=== PATIENT | female | born 1950 | race Caucasian/White ===

== ENCOUNTER → 2024-04-06 09:41 | Outpatient (REF) | payer OTHER, SELFPAY | LOC: RAD 09:41 | PROVIDERS: ATTENDING PHYSICIAN Family Medicine | DX: K21.9 Gastro-esophageal reflux disease without esophagitis (principal); R63.4 Abnormal weight loss | CPT/HCPCS: 74230; 92611 ==

== ENCOUNTER → 2024-04-29 06:25 | Day surgery (SDC) | payer OTHER, SELFPAY ==
[2024-04-29 08:55] LABS: Glucose - Point of Care 109 mg/dl (70-99)
== END ==
LOC: GI 06:25
PROVIDERS: ATTENDING PHYSICIAN Internal Medicine Gastroenterology
DX: R13.14 Dysphagia, pharyngoesophageal phase (principal); C15.4 Malignant neoplasm of middle third of esophagus; R12 Heartburn; R63.4 Abnormal weight loss; R68.81 Early satiety; K31.89 Other diseases of stomach and duodenum; K29.50 Unspecified chronic gastritis without bleeding; K31.A0 Gastric intestinal metaplasia, unspecified; D49.0 Neoplasm of unspecified behavior of digestive system; F17.210 Nicotine dependence, cigarettes, uncomplicated
CPT/HCPCS: 43239; 88305; 82962; 88342; 88360

== ENCOUNTER → 2024-05-21 10:55 | Outpatient (REF) | payer OTHER, SELFPAY | LOC: PET 10:55 | PROVIDERS: ATTENDING PHYSICIAN Internal Medicine Hematology & Oncology | DX: C15.4 Malignant neoplasm of middle third of esophagus (principal) | CPT/HCPCS: 78815; A9552 ==

== ENCOUNTER → 2024-06-16 07:33 | Outpatient (REF) | payer OTHER, SELFPAY | LOC: DHCBC/DCA 07:33 | PROVIDERS: ATTENDING PHYSICIAN Internal Medicine; FAMILY PHYSICIAN Family Medicine | DX: I10 Essential (primary) hypertension (principal); C15.9 Malignant neoplasm of esophagus, unspecified; R94.31 Abnormal electrocardiogram [ECG] [EKG]; R42 Dizziness and giddiness | CPT/HCPCS: 78452; 93017; A9500; J2785 ==

== ENCOUNTER → 2024-06-17 13:40 | Outpatient (REF) | payer OTHER, SELFPAY | LOC: RCS 13:40 | PROVIDERS: ATTENDING PHYSICIAN Internal Medicine; FAMILY PHYSICIAN Family Medicine | DX: I10 Essential (primary) hypertension (principal); C15.9 Malignant neoplasm of esophagus, unspecified; R94.31 Abnormal electrocardiogram [ECG] [EKG]; R42 Dizziness and giddiness | CPT/HCPCS: 93306; 93356 ==

== ENCOUNTER → 2024-06-22 08:33 | Outpatient (REF) | payer OTHER, SELFPAY ==
[2024-06-22 08:44] VITALS: BP 132/55; BP_SYST 76
[2024-06-22 09:22] LABS: Glucose - Point of Care 139 mg/dl (70-99)
[2024-06-22 10:30] VITALS: BP 125/57; BP_SYST 82
[2024-06-22 10:43] VITALS: BP 137/63
== END ==
LOC: RADI 08:33
PROVIDERS: ATTENDING PHYSICIAN Internal Medicine Hematology & Oncology
DX: C15.4 Malignant neoplasm of middle third of esophagus (principal)
CPT/HCPCS: 36561; 76937; 77001; 82962; 99152; 99153; C1788

== ENCOUNTER 2024-08-06 13:34 | Outpatient (RCR) | payer OTHER, SELFPAY ==
[2024-07-07] VITALS (10 sets, daily range): BP systolic 113–142; BP diastolic 48–98; BMI 24.4
[2024-07-07 10:04] LABS: Hematocrit 31.8 % (37.0-47.0); Hemoglobin 10.6 g/dL (12.0-16.0); Mean Corp Hgb Conc. 33.3 g/dL (33.0-37.0); Mean Corpuscular Volume 84.1 fL (81.0-99.0); Mean Platelet Volume 8.8 fL (7.4-10.4); Platelet Count 436 10^3/uL (130-400); Red Blood Cell Count 3.78 10^6/uL (4.20-5.40); Red Cell Dist. Width 15.5 % (11.5-14.5); White Blood Cell Count 3.3 10^3/uL (4.8-10.8)
[2024-07-07 10:47] LABS: % Basophils 0.6 % (0-2); % Eosinophils 2.7 % (0-6); % Immature Granulocytes 0.3 % (0-0.5); % Lymphocytes 31.3 % (20.5-51.1); % Monocytes 13.7 % (1.7-9.3); % Neutrophils 51.4 % (42.2-75.2); Absolute Eosinophils 0.1 10^3/uL (0-0.7); Absolute Monocytes 0.5 10^3/uL (0.1-0.6); Absolute Neutrophils 1.7 10^3/uL (1.4-6.5); Nucleated Red Blood Cells % 0 %
[2024-07-07 10:50] LABS: ALT (SGPT) 18 U/L (0-35); AST (SGOT) 29 U/L (14-36); Albumin 3.4 g/dl (3.5-5.0); Alkaline Phosphatase 69 U/L (38-126); Blood Urea Nitrogen 23 mg/dl (7-17); Calcium 10.4 mg/dl (8.4-10.2); Carbon Dioxide 25 mmol/L (22-30); Chloride 103 mmol/L (98-107); Estimated Creatinine Clearance 68 ml/min; Glucose 125 mg/dl (70-99); Potassium 4.4 mmol/L (3.5-5.1); Sodium 137 mmol/L (135-145); Total Bilirubin 0.4 mg/dl (0.2-1.3); Total Protein 5.8 g/dl (6.3-8.2); eGFR > 60.00
[2024-07-07] MEDS: KEYTRUDA 116 MG IV (11:22)
[2024-07-07] MEDS: EMEND 150 MG IV (11:53)
[2024-07-07] MEDS: ALOXI 5 MG IV (12:35)
[2024-07-07] MEDS: DECADRON 51 MG IV (12:36)
[2024-07-07] MEDS: WELLCOVORIN 316.4 MG IV (13:05)
[2024-07-07] MEDS: OXALIPLATIN 278.2 MG IV (13:07)
[2024-07-07] MEDS: FLUOROURACIL 13.2 MG IV (15:37)
[2024-07-07] MEDS: FLUOROURACIL 92 ML IV (15:38)
[2024-07-07] MEDS: FLUOROURACIL 92 MG IV (15:38)
[2024-07-09 13:45] VITALS: BP 130/63
[2024-07-09] MEDS: [UNRECOGNIZED DRUG - OTHER] 1 IV (13:50)
[2024-07-21 08:35] VITALS: BP 138/48; BMI 24.6
[2024-07-21 08:51] LABS: % Basophils 0.8 % (0-2); % Eosinophils 1.2 % (0-6); % Lymphocytes 34.9 % (20.5-51.1); % Monocytes 16.9 % (1.7-9.3); % Neutrophils 46.2 % (42.2-75.2); Absolute Lymphocytes 0.9 10^3/uL (1.2-3.4); Absolute Monocytes 0.4 10^3/uL (0.1-0.6); Absolute Neutrophils 1.2 10^3/uL (1.4-6.5); Hematocrit 33.5 % (37.0-47.0); Hemoglobin 11.1 g/dL (12.0-16.0); Mean Corp Hgb Conc. 33.1 g/dL (33.0-37.0); Mean Corpuscular Hgb 29.1 pg (27.0-31.0); Mean Corpuscular Volume 87.9 fL (81.0-99.0); Mean Platelet Volume 9.1 fL (7.4-10.4); Platelet Count 323 10^3/uL (130-400); Red Blood Cell Count 3.81 10^6/uL (4.20-5.40); Red Cell Dist. Width 16.8 % (11.5-14.5); White Blood Cell Count 2.6 10^3/uL (4.8-10.8)
[2024-07-21 09:18] LABS: ALT (SGPT) 15 U/L (0-35); AST (SGOT) 22 U/L (14-36); Albumin 3.5 g/dl (3.5-5.0); Alkaline Phosphatase 65 U/L (38-126); Blood Urea Nitrogen 25 mg/dl (7-17); Calcium 9.9 mg/dl (8.4-10.2); Carbon Dioxide 25 mmol/L (22-30); Chloride 102 mmol/L (98-107); Estimated Creatinine Clearance 68 ml/min; Glucose 167 mg/dl (70-99); Sodium 139 mmol/L (135-145); Total Bilirubin 0.5 mg/dl (0.2-1.3); Total Protein 5.8 g/dl (6.3-8.2); eGFR > 60.00
[2024-07-21] MEDS: EMEND 150 MG IV (10:31)
[2024-07-21] MEDS: ALOXI 5 MG IV (11:05)
[2024-07-21] MEDS: DECADRON 51 MG IV (11:06)
[2024-07-21] MEDS: OXALIPLATIN 278.2 MG IV (11:37)
[2024-07-21] MEDS: WELLCOVORIN 283.2 MG IV (11:38)
[2024-07-21 11:45] VITALS: BP 163/63
[2024-07-21 12:30] VITALS: BP 137/61
[2024-07-21 13:45] VITALS: BP 148/50
[2024-07-21] MEDS: FLUOROURACIL 13.2 MG IV (13:51)
[2024-07-21] MEDS: FLUOROURACIL 92 MG IV (13:52)
[2024-07-21] MEDS: FLUOROURACIL 92 ML IV (13:52)
[2024-07-23 13:55] VITALS: BP 111/56
[2024-07-23] MEDS: [UNRECOGNIZED DRUG - OTHER] 1 IV (13:58)
[2024-07-23] MEDS: NYVEPRIA 6 MG SC (13:59)
[2024-07-30 09:20] LABS: % Basophils 0.4 % (0-2); % Immature Granulocytes 11.7 % (0-0.5); % Lymphocytes 22.5 % (20.5-51.1); % Monocytes 9.1 % (1.7-9.3); % Neutrophils 55.3 % (42.2-75.2); Absolute Basophils 0.1 10^3/uL (0-0.2); Absolute Eosinophils 0.1 10^3/uL (0-0.7); Absolute Immature Granulocytes 1.7 10^3/uL (0-0.05); Absolute Lymphocytes 3.3 10^3/uL (1.2-3.4); Absolute Monocytes 1.3 10^3/uL (0.1-0.6); Absolute Neutrophils 8.1 10^3/uL (1.4-6.5); Hematocrit 36.9 % (37.0-47.0); Hemoglobin 12.2 g/dL (12.0-16.0); Mean Corp Hgb Conc. 33.1 g/dL (33.0-37.0); Mean Corpuscular Hgb 29.3 pg (27.0-31.0); Mean Corpuscular Volume 88.5 fL (81.0-99.0); Mean Platelet Volume 9.4 fL (7.4-10.4); Platelet Count 272 10^3/uL (130-400); Red Blood Cell Count 4.17 10^6/uL (4.20-5.40); Red Cell Dist. Width 18.2 % (11.5-14.5); White Blood Cell Count 14.7 10^3/uL (4.8-10.8)
[2024-07-30 10:10] LABS: ALT (SGPT) 17 U/L (0-35); AST (SGOT) 28 U/L (14-36); Albumin 3.5 g/dl (3.5-5.0); Alkaline Phosphatase 120 U/L (38-126); Blood Urea Nitrogen 17 mg/dl (7-17); Calcium 9.8 mg/dl (8.4-10.2); Carbon Dioxide 29 mmol/L (22-30); Chloride 101 mmol/L (98-107); Estimated Creatinine Clearance 68 ml/min; Glucose 113 mg/dl (70-99); Potassium 3.7 mmol/L (3.5-5.1); Sodium 138 mmol/L (135-145); Total Bilirubin 0.4 mg/dl (0.2-1.3); Total Protein 5.8 g/dl (6.3-8.2); eGFR > 60.00
[2024-08-04 08:40] VITALS: BP 133/66; BMI 24.8
[2024-08-04 08:49] LABS: % Basophils 0.5 % (0-2); % Eosinophils 0.4 % (0-6); % Immature Granulocytes 12.3 % (0-0.5); % Monocytes 7.5 % (1.7-9.3); % Neutrophils 61.3 % (42.2-75.2); Absolute Basophils 0.1 10^3/uL (0-0.2); Absolute Eosinophils 0.1 10^3/uL (0-0.7); Absolute Immature Granulocytes 1.7 10^3/uL (0-0.05); Absolute Lymphocytes 2.5 10^3/uL (1.2-3.4); Absolute Monocytes 1.1 10^3/uL (0.1-0.6); Absolute Neutrophils 8.5 10^3/uL (1.4-6.5); Hematocrit 37.2 % (37.0-47.0); Hemoglobin 12.3 g/dL (12.0-16.0); Mean Corp Hgb Conc. 33.1 g/dL (33.0-37.0); Mean Corpuscular Hgb 29.4 pg (27.0-31.0); Mean Corpuscular Volume 88.8 fL (81.0-99.0); Mean Platelet Volume 9.4 fL (7.4-10.4); Platelet Count 146 10^3/uL (130-400); Red Blood Cell Count 4.19 10^6/uL (4.20-5.40); Red Cell Dist. Width 19.1 % (11.5-14.5); White Blood Cell Count 13.9 10^3/uL (4.8-10.8)
[2024-08-04 09:47] LABS: ALT (SGPT) 21 U/L (0-35); AST (SGOT) 37 U/L (14-36); Albumin 3.5 g/dl (3.5-5.0); Alkaline Phosphatase 106 U/L (38-126); Blood Urea Nitrogen 17 mg/dl (7-17); Calcium 10.2 mg/dl (8.4-10.2); Carbon Dioxide 27 mmol/L (22-30); Chloride 103 mmol/L (98-107); Estimated Creatinine Clearance 68 ml/min; Glucose 169 mg/dl (70-99); Potassium 3.7 mmol/L (3.5-5.1); Sodium 138 mmol/L (135-145); Total Bilirubin 0.3 mg/dl (0.2-1.3); Total Protein 5.8 g/dl (6.3-8.2); eGFR > 60.00
[2024-08-04 10:03] LABS: Free T4 1.13 ng/dl (0.78-2.19)
[2024-08-04 10:17] LABS: TSH 3.93 uIU/ml (0.47-4.68)
[2024-08-04] MEDS: EMEND 150 MG IV (10:17)
[2024-08-04] MEDS: ALOXI 5 MG IV (10:53)
[2024-08-04] MEDS: DECADRON 51 MG IV (10:54)
[2024-08-04] MEDS: OXALIPLATIN 278.2 MG IV (11:21)
[2024-08-04] MEDS: WELLCOVORIN 283.2 MG IV (11:21)
[2024-08-04] MEDS: FLUOROURACIL 13.2 MG IV (13:43)
[2024-08-04] MEDS: FLUOROURACIL 92 ML IV (13:44)
[2024-08-04] MEDS: FLUOROURACIL 92 MG IV (13:44)
[2024-08-06 13:35] VITALS: BP 151/66
[2024-08-06] MEDS: [UNRECOGNIZED DRUG - OTHER] 1 IV (13:45)
[2024-08-06] MEDS: NYVEPRIA 6 MG SC (13:51)
== END 2024-08-06 23:59 | disposition home or self-care (01) ==
LOC: OID 13:34
PROVIDERS: ATTENDING PHYSICIAN Internal Medicine Hematology & Oncology; FAMILY PHYSICIAN Family Medicine
DX: Z51.11 Encounter for antineoplastic chemotherapy (principal); C15.4 Malignant neoplasm of middle third of esophagus; D50.9 Iron deficiency anemia, unspecified; C78.7 Secondary malignant neoplasm of liver and intrahepatic bile duct; Z72.0 Tobacco use; Z68.29 Body mass index [BMI] 29.0-29.9, adult
CPT/HCPCS: 36415; 36591; 80053; 82378; 84439; 84443; 85025; 96365; 96366; 96367; 96368; 96372; 96375; 96409; 96411; 96413; 96415; 96416; 96417; 96523; J1453; J2469; J9263; J9271; Q5122

== ENCOUNTER 2024-08-20 14:30 | Outpatient (RCR) | payer OTHER, SELFPAY ==
[2024-08-11 10:03] LABS: % Basophils 0.2 % (0-2); % Eosinophils 0.2 % (0-6); % Immature Granulocytes 0.9 % (0-0.5); % Lymphocytes 15.3 % (20.5-51.1); % Monocytes 2.6 % (1.7-9.3); % Neutrophils 80.8 % (42.2-75.2); Absolute Eosinophils 0.1 10^3/uL (0-0.7); Absolute Immature Granulocytes 0.2 10^3/uL (0-0.05); Absolute Lymphocytes 3.2 10^3/uL (1.2-3.4); Absolute Monocytes 0.5 10^3/uL (0.1-0.6); Absolute Neutrophils 16.8 10^3/uL (1.4-6.5); Hematocrit 39.5 % (37.0-47.0); Hemoglobin 13.3 g/dL (12.0-16.0); Mean Corp Hgb Conc. 33.7 g/dL (33.0-37.0); Mean Corpuscular Hgb 29.8 pg (27.0-31.0); Mean Corpuscular Volume 88.4 fL (81.0-99.0); Mean Platelet Volume 9.3 fL (7.4-10.4); Platelet Count 175 10^3/uL (130-400); Red Blood Cell Count 4.47 10^6/uL (4.20-5.40); Red Cell Dist. Width 18.6 % (11.5-14.5); White Blood Cell Count 20.8 10^3/uL (4.8-10.8)
[2024-08-11 12:12] LABS: ALT (SGPT) 20 U/L (0-35); AST (SGOT) 27 U/L (14-36); Albumin 4.3 g/dl (3.5-5.0); Alkaline Phosphatase 137 U/L (38-126); Blood Urea Nitrogen 17 mg/dl (7-17); Calcium 10.4 mg/dl (8.4-10.2); Carbon Dioxide 29 mmol/L (22-30); Chloride 97 mmol/L (98-107); Glucose 92 mg/dl (70-99); Potassium 3.9 mmol/L (3.5-5.1); Sodium 140 mmol/L (135-145); Total Bilirubin 0.9 mg/dl (0.2-1.3); Total Protein 6.8 g/dl (6.3-8.2); eGFR > 60.00
[2024-08-18 08:40] VITALS: BP 138/61
[2024-08-18 08:55] LABS: % Basophils 0.6 % (0-2); % Immature Granulocytes 0.6 % (0-0.5); % Lymphocytes 30.4 % (20.5-51.1); % Monocytes 14.5 % (1.7-9.3); % Neutrophils 51.9 % (42.2-75.2); Absolute Eosinophils 0.1 10^3/uL (0-0.7); Absolute Lymphocytes 1.6 10^3/uL (1.2-3.4); Absolute Monocytes 0.7 10^3/uL (0.1-0.6); Absolute Neutrophils 2.7 10^3/uL (1.4-6.5); Hemoglobin 11.7 g/dL (12.0-16.0); Mean Corp Hgb Conc. 32.5 g/dL (33.0-37.0); Mean Corpuscular Hgb 29.4 pg (27.0-31.0); Mean Corpuscular Volume 90.5 fL (81.0-99.0); Mean Platelet Volume 10.2 fL (7.4-10.4); Platelet Count 200 10^3/uL (130-400); Red Blood Cell Count 3.98 10^6/uL (4.20-5.40); Red Cell Dist. Width 19.9 % (11.5-14.5); White Blood Cell Count 5.1 10^3/uL (4.8-10.8)
[2024-08-18 09:31] LABS: ALT (SGPT) 15 U/L (0-35); AST (SGOT) 26 U/L (14-36); Albumin 3.5 g/dl (3.5-5.0); Alkaline Phosphatase 86 U/L (38-126); Blood Urea Nitrogen 18 mg/dl (7-17); Carbon Dioxide 28 mmol/L (22-30); Chloride 105 mmol/L (98-107); Glucose 112 mg/dl (70-99); Potassium 3.7 mmol/L (3.5-5.1); Sodium 139 mmol/L (135-145); Total Bilirubin 0.6 mg/dl (0.2-1.3); Total Protein 5.9 g/dl (6.3-8.2); eGFR > 60.00
[2024-08-18] MEDS: KEYTRUDA 116 MG IV (10:04)
[2024-08-18] MEDS: EMEND 150 MG IV (10:41)
[2024-08-18] MEDS: DECADRON 51 MG IV (11:18)
[2024-08-18] MEDS: ALOXI 5 MG IV (11:18)
[2024-08-18] MEDS: OXALIPLATIN 278.2 MG IV (11:48)
[2024-08-18] MEDS: WELLCOVORIN 283.2 MG IV (11:49)
[2024-08-18] MEDS: FLUOROURACIL 13.2 MG IV (14:03)
[2024-08-18] MEDS: FLUOROURACIL 92 ML IV (14:04)
[2024-08-18] MEDS: FLUOROURACIL 92 MG IV (14:04)
[2024-08-20] MEDS: NYVEPRIA 6 MG SC (14:41)
[2024-08-20] MEDS: [UNRECOGNIZED DRUG - OTHER] 1 IV (14:42)
[2024-08-20 14:54] VITALS: BP 122/47
== END 2024-09-01 15:17 | disposition home or self-care (01) ==
LOC: OID 14:30
PROVIDERS: ATTENDING PHYSICIAN Internal Medicine Hematology & Oncology; FAMILY PHYSICIAN Family Medicine
DX: C15.4 Malignant neoplasm of middle third of esophagus (principal); C78.7 Secondary malignant neoplasm of liver and intrahepatic bile duct; D50.9 Iron deficiency anemia, unspecified; Z68.29 Body mass index [BMI] 29.0-29.9, adult; Z87.891 Personal history of nicotine dependence; Z72.0 Tobacco use; Z51.11 Encounter for antineoplastic chemotherapy
CPT/HCPCS: 36415; 80053; 85025; 96367; 96368; 96372; 96375; 96409; 96413; 96415; 96416; 96417; 96523; J1453; J2469; J9263; J9271; Q5122

== ENCOUNTER 2024-08-31 15:08 | Emergency (ER) | payer OTHER, SELFPAY ==
[2024-08-31 15:10] VITALS: BP 164/77
--- NOTE | 2024-08-31 15:15 | ED.GENMED ---
ED Provider Triage
<Arleen Lopez MANAGER REAL ESTATE - Last Filed: 08/31/24 15:19>
-
Patient seen by provider in Triage?: Seen in Triage
Attestation: A medical screening examination has been initiated by a qualified medical provider. Based on the assessment performed at this time, it has been determined that an emergent medical condition may exist and the patient has been informed
that further medical evaluation and possible additional diagnostic testing may be needed.
HPI: 74 yo female states black stools, liquid diarrhea, two days after last chemo treatment 08/18. Also with abdominal pain. Also with SOB with exertion. Denies CP. Denies fever, feels chilled. Intermittent nausea and vomiting since December. Feels
nauseous now but has not vomited for 10 days.
Chemo for esophageal CA. Followed by Dr. Mas
GENERAL: Alert , in no apparent distress
EYE: No visual abnormalities.
NECK: Trachea midline
ENT: No visible abnormalities.
LUNGS: No acute respiratory distress
NEUROLOGICAL: Alert and oriented
SKIN: Skin intact. No visible changes.
MUSCULOSKELETAL: Moving extremities normally
PSYCH: Normal and appropriate interaction.
This is a medical evaluation conducted in person to initiate diagnostic evaluation and provide initial therapeutics. Please see further documentation by the treating clinician.
History of Present Illness
<Arleen Lopez, MANAGER REAL ESTATE - Last Filed: 08/31/24 15:19>
General
Chief Complaint: Rectal Bleeding
Time Seen by Provider: 08/31/24 16:40
<Bret Guerrero DO - Last Filed: 08/31/24 19:34>
General
Source: patient and other (friend)
History of Present Illness
History of Present Illness:
74-year-old female presents with black stools. Symptoms have been ongoing for 3 days. Patient admits that she has been '[place] Kaopectate'. She states she has had diarrhea and has difficulty getting the Imodium out of the packet so has been
taking a lot of Kaopectate. She also reports a little bit of lightheadedness and fatigue. Mild nausea. Patient called her primary doctor who advised her to come to the hospital. She has been treated for esophageal cancer by GI and oncology. She
denies hematochezia. Has had abdominal discomfort but that has been ongoing for some time.
Past History
<Bret Guerrero, DO - Last Filed: 08/31/24 19:34>
Past History
ED Past Medical History: Cancer (Esophageal CA), HTN, Hypercholesterolemia and IDDM
Phy Exam
<Bret Guerrero, DO - Last Filed: 08/31/24 19:34>
Physical Exam
Physical Exam:
CONSTITUTIONAL Patient alert and oriented to person, place and time. Well-appearing. Vital signs reviewed.
HEAD atraumatic, normocephalic.
EYES eyelids normal to inspection, Extraocular muscles intact, Conjunctiva normal, Sclera normal.
NECK normal range of motion, Trachea midline, no jugular venous distention.
RESPIRATORY CHEST No respiratory distress noted, Chest expansion equal
ABDOMEN abdomen nontender, Bowel sounds normal. No distention.
Rectal ? trace heme pos despite black stool.
BACK normal inspection, no obvious deformities
UPPER EXTREMITY range of motion normal, Motor strength normal, no cyanosis, no edema.
LOWER EXTREMITY range of motion normal, Motor strength normal, no cyanosis, no edema.
NEURO Speech normal, No focal motor deficits, [place] coma scale 15, Memory normal, Cranial Nerves intact to screening exam.
SKIN skin warm, dry, and normal in color.
Course
<Arleen Lopez MANAGER REAL ESTATE - Last Filed: 08/31/24 15:19>
Orders/Labs/Results
Orders:
Orders
08/31/24 15:22
Complete Blood Count/With Diff Urgent
Comprehensive Metabolic Panel Urgent
Abnormal Lab Results
08/31/24
15:22
RBC 4.17 L 10^6/uL
(4.20-5.40)
MCHC 32.6 L g/dL
(33.0-37.0)
RDW 21.1 H %
(11.5-14.5)
Abs Immat Gran (auto) 1.2 H 10^3/uL
(0-0.05)
Absolute Monos (auto) 0.9 H 10^3/uL
(0.1-0.6)
Immature Gran % 11.4 H %
(0-0.5)
BUN 21 H mg/dl
(7-17)
Glucose 253 H mg/dl
(70-99)
Total Protein 6.2 L g/dl
(6.3-8.2)
08/31/24 15:22
08/31/24 15:22
Vital Signs
Initial and Last Documented VS:
Initial Vital Signs
Temp Pulse Resp BP Pulse Ox
99.2 F 103 16 164/77 95
08/31/24 15:10 08/31/24 15:10 08/31/24 15:10 08/31/24 15:10 08/31/24 15:10
Last Documented Vital Signs
Temp Pulse Resp BP Pulse Ox
99.2 F 94 21 146/67 97
08/31/24 15:10 08/31/24 18:45 08/31/24 18:45 08/31/24 18:01 08/31/24 18:45
<Bret Guerrero, DO - Last Filed: 08/31/24 19:34>
Orders/Labs/Results
Orders:
Orders
08/31/24 15:22
Complete Blood Count/With Diff Urgent
Comprehensive Metabolic Panel Urgent
Abnormal Lab Results
08/31/24
15:22
RBC 4.17 L 10^6/uL
(4.20-5.40)
MCHC 32.6 L g/dL
(33.0-37.0)
RDW 21.1 H %
(11.5-14.5)
Abs Immat Gran (auto) 1.2 H 10^3/uL
(0-0.05)
Absolute Monos (auto) 0.9 H 10^3/uL
(0.1-0.6)
Immature Gran % 11.4 H %
(0-0.5)
BUN 21 H mg/dl
(7-17)
Glucose 253 H mg/dl
(70-99)
Total Protein 6.2 L g/dl
(6.3-8.2)
08/31/24 15:22
08/31/24 15:22
Vital Signs
Initial and Last Documented VS:
Initial Vital Signs
Temp Pulse Resp BP Pulse Ox
99.2 F 103 16 164/77 95
08/31/24 15:10 08/31/24 15:10 08/31/24 15:10 08/31/24 15:10 08/31/24 15:10
Last Documented Vital Signs
Temp Pulse Resp BP Pulse Ox
99.2 F 94 21 146/67 97
08/31/24 15:10 08/31/24 18:45 08/31/24 18:45 08/31/24 18:01 08/31/24 18:45
<Bret Guerrero, DO - Last Filed: 08/31/24 19:34>
MDM/Problems Addressed
MDM/Problems Addressed:
Black stool from Kaopectate, esophageal CA, hyperglycemia, acute dehydration
<Bret Guerrero, DO - Last Filed: 08/31/24 19:34>
*Pulse Oximetry
Patient hypoxic: no
*Service Tester Interpretation
Rate: normal
Interpretation: normal
Rhythm: sinus
*Critical Care Note
Total Time (30-74mins, 75-104mins- exclusive of procedures): Not Applicable
Data Reviewed
Review of Other/Old Records Reveals: Operative Reports (Endoscopy from April 2024 reviewed)
Source: patient and other (Friend)
Prescriptions/Medications Considered But Not Given:
Considered Protonix drip but suspect black stool related to Kaopectate
<Bret Guerrero DO - Last Filed: 08/31/24 19:34>
Patient Management
Discussion with other providers: Funeral Greeter (Dr. Bowie GI)
Escalation/DeEscalation of care consider admission/obs:
74-year-old female who presents with black stools. Her hemoglobin is stable despite 3 days of persistent black stools. I strongly suspect it is related to Kaopectate. Case discussed Dr. Bowie. She is well-appearing. Okay for discharge and
outpatient follow-up
ED Attending Note
<Arleen Lopez MANAGER REAL ESTATE - Last Filed: 08/31/24 15:19>
-
Portions of this chart may have been created with voice recognition software.� Occasional wrong word or��sound alike� substitutions may have occurred due to the inherent limitations of voice recognition software.
Discharge Plan
Departure
Patient Disposition: Home (Routine Discharge)
Date of Disposition: 08/31/24
Time of Disposition: 19:28
Patient with high blood pressure during this ER visit?: Yes
Discharge Problem:
Black stool, Diarrhea
Instructions: Acute Diarrhea
Prescriptions:
No Action
omeprazole [Prilosec] 40 mg Capsule,Delayed Release(Dr/Ec)
40 mg PO DAILY
simvastatin 20 mg Tablet
20 mg PO DAILY
hydrochlorothiazide 25 mg Tablet
25 mg PO DAILY
lisinopril 40 mg Tablet
40 mg PO DAILY
fenofibrate nanocrystallized 145 mg Tablet
145 mg PO DAILY
prochlorperazine maleate 10 mg Tablet
10 mg PO PRN PRN (Reason: nausea)
ondansetron 8 mg Tablet,Disintegrating
8 mg PO PRN PRN (Reason: nausea)
lidocaine-prilocaine 2.5-2.5 % Cream
1 applic topical PRN PRN (Reason: pain)
insulin glargine [Lantus Solostar U-100 Insulin] 100 unit/mL (3 mL) Insulin Pen
20 unit SC QPM
aspirin 81 mg Capsule
81 mg PO DAILY
M.V.I.
1 unit PO DAILY
Keytruda
1 unit IV .[id number]
fluorouracil
1 unit IV .[id number]
leucovorin calcium
1 unit IV .[id number]
oxaliplatin
1 unit IV .[id number]
Referrals:
Kathleen Manzano, DO [Family Provider] -
Activity Restrictions/Additional Instructions:
Please stop Kaopectate. Please use Imodium as needed. Please see your doctor or GI doctor in the next 3 to 5 days for follow-up and reevaluation. Return immediately for intractable vomiting, bloody stool, fevers, or any other concerns.
Interventions
Interventions:
*Risk Screen - Suicide Last Done: 08/31/24 15:13
*General Assessment Last Done: 08/31/24 17:29
*Neglect/Abuse Screening Last Done: 08/31/24 15:13
ED- Fall Risk Assessment Last Done: 08/31/24 17:31
*ED COVID-19 Vaccine History Last Done: 08/31/24 15:12
[place]-Vwselsx[facility] Assessment Last Done: 08/31/24 16:52
ED- Cardiac Assessment Last Done: 08/31/24 16:51
ED- Pulmonary Assessment Last Done: 08/31/24 16:51
Discharge Date and Time
Print Language: FAROESE
[2024-08-31 15:40] LABS: Hematocrit 39.3 % (37.0-47.0); Hemoglobin 12.8 g/dL (12.0-16.0); Mean Corp Hgb Conc. 32.6 g/dL (33.0-37.0); Mean Corpuscular Hgb 30.7 pg (27.0-31.0); Mean Corpuscular Volume 94.2 fL (81.0-99.0); Mean Platelet Volume 10.1 fL (7.4-10.4); Platelet Count 137 10^3/uL (130-400); Red Blood Cell Count 4.17 10^6/uL (4.20-5.40); Red Cell Dist. Width 21.1 % (11.5-14.5); White Blood Cell Count 10.6 10^3/uL (4.8-10.8)
[2024-08-31 15:52] LABS: ALT (SGPT) 18 U/L (0-35); AST (SGOT) 33 U/L (14-36); Albumin 3.7 g/dl (3.5-5.0); Alkaline Phosphatase 97 U/L (38-126); Blood Urea Nitrogen 21 mg/dl (7-17); Calcium 9.9 mg/dl (8.4-10.2); Carbon Dioxide 25 mmol/L (22-30); Chloride 103 mmol/L (98-107); Glucose 253 mg/dl (70-99); Potassium 4.3 mmol/L (3.5-5.1); Sodium 138 mmol/L (135-145); Total Bilirubin 0.5 mg/dl (0.2-1.3); Total Protein 6.2 g/dl (6.3-8.2); eGFR > 60.00
[2024-08-31 16:17] LABS: % Basophils 0.9 % (0-2); % Eosinophils 0.9 % (0-6); % Immature Granulocytes 11.4 % (0-0.5); % Lymphocytes 27.5 % (20.5-51.1); % Monocytes 8.8 % (1.7-9.3); % Neutrophils 50.5 % (42.2-75.2); Absolute Basophils 0.1 10^3/uL (0-0.2); Absolute Eosinophils 0.1 10^3/uL (0-0.7); Absolute Immature Granulocytes 1.2 10^3/uL (0-0.05); Absolute Lymphocytes 2.9 10^3/uL (1.2-3.4); Absolute Monocytes 0.9 10^3/uL (0.1-0.6); Absolute Neutrophils 5.4 10^3/uL (1.4-6.5); Nucleated Red Blood Cells % 1.5 %
[2024-08-31 16:43] VITALS: BMI 24.6
[2024-08-31 16:54] VITALS: BP 161/72
[2024-08-31 18:01] VITALS: BP 146/67
[2024-08-31 19:00] VITALS: BP 149/66
== END 2024-08-31 19:44 | disposition home or self-care (01) ==
LOC: EMR 15:08
PROVIDERS: Registered Nurse; EMERGENCY PHYSICIAN Emergency Medicine; FAMILY PHYSICIAN Family Medicine
DX: R19.7 Diarrhea, unspecified (principal); R19.5 Other fecal abnormalities; C15.9 Malignant neoplasm of esophagus, unspecified; E78.00 Pure hypercholesterolemia, unspecified; I10 Essential (primary) hypertension; E11.65 Type 2 diabetes mellitus with hyperglycemia; Z79.899 Other long term (current) drug therapy; Z79.4 Long term (current) use of insulin
CPT/HCPCS: 99283; 80053; 85025

== ENCOUNTER 2024-09-15 21:03 | Observation (INO) | payer OTHER, SELFPAY ==
[2024-09-15] VITALS (7 sets, daily range): BP systolic 143–167; BP diastolic 63–76; BMI 23.8
--- NOTE | 2024-09-15 14:06 | ED.MUSCINJ ---
HPI-Injury
<Zach Bustamante PA-C - Last Filed: 09/15/24 15:58>
General
Chief Complaint: Musculo-Skeletal Complaint
Source: patient
Exam Limitations: none
Time Seen by Provider: 09/15/24 13:50
History of Present Illness-Injury
Initial Injury comments:
74-year-old female presents complaining of left hip pain. She was seen at the infusion center today for fluids. She is currently getting chemotherapy for his esophageal cancer. She is due for her next chemo treatment next week. She fell 4 days
ago and has ongoing pain to the left ribs and left chest. She also hit her head and has a headache. She is not anticoagulated. She is having a lot of difficulty ambulating or bearing weight on the left leg secondary to her hip pain
Past History
<Zach Bustamante PA-C - Last Filed: 09/15/24 15:58>
Past History
ED Past Medical History: Cancer (Esophageal CA), HTN, Hypercholesterolemia and IDDM
Phy Exam
<LUIS FERNANDO Cardoso Last Filed: 09/15/24 15:58>
Physical Exam
Physical Exam:
General: Well-appearing female no acute respiratory distress
HEENT: Normocephalic atraumatic
Heart: Regular rate and rhythm no murmurs
Lungs: Clear no wheeze
Abdomen is soft nontender nondistended
Musculoskeletal exam: No deformities noted to the leg. She has tenderness about the anterior lateral aspect left hip with increased pain with internal rotation of the left hip. The spine is nontender. Bilateral upper extremities are nontender
Injury Course
<Zach Bustamante PA-C - Last Filed: 09/15/24 15:58>
Orders/Labs/Results
Orders:
Orders
09/15/24 12:18
Chest [CR Chest - 2 Views ] Urgent
Comment:
Reason For Exam: fall, L rib pain
Hip, Left 2-3 Views [CR Hip - LT w/wo Pel 2-3 Vw*] Urgent
Comment:
Reason For Exam: fall, pain
Include a pelvis x-ray?: Yes
09/15/24 14:01
CT Head W/o Iv Contrast Urgent
Comment:
Reason For Exam: fall
CT Pelvis W/o Iv Contrast Urgent
Comment:
Reason For Exam: fall, left hip pain
09/15/24 15:54
Case Management Consult ONCE
Case Management Consult: VN/Home Care
PT Consult [Pt Eval And Treat] Urgent
Activity Level: Ambulate
09/15/24 16:41
Nicotine [Nicoderm Transdermal] 14 mg TRANSDERM ONCE ONE
<Ulises Palacios Jr., LUIS FERNANDO - Last Filed: 09/15/24 17:24>
Orders/Labs/Results
Orders:
Orders
09/15/24 12:18
Chest [CR Chest - 2 Views ] Urgent
Comment:
Reason For Exam: fall, L rib pain
Hip, Left 2-3 Views [CR Hip - LT w/wo Pel 2-3 Vw*] Urgent
Comment:
Reason For Exam: fall, pain
Include a pelvis x-ray?: Yes
09/15/24 14:01
CT Head W/o Iv Contrast Urgent
Comment:
Reason For Exam: fall
CT Pelvis W/o Iv Contrast Urgent
Comment:
Reason For Exam: fall, left hip pain
09/15/24 15:54
Case Management Consult ONCE
Case Management Consult: VN/Home Care
PT Consult [Pt Eval And Treat] Urgent
Activity Level: Ambulate
09/15/24 16:41
Nicotine [Nicoderm Transdermal] 14 mg TRANSDERM ONCE ONE
<Zach Bustamante PA-C - Last Filed: 09/15/24 15:58>
MDM/Problems Addressed
Differential Diagnosis Includes:
Persistent left hip pain sent in by infusion center. Consider contusion versus strain versus fracture. She also hit her head and notes ongoing headache. I personally visualized x-rays of the left hip and pelvis with chest x-ray. These are
negative for acute finding. There is some concern for occult fracture of the left hip given her exam. CT of pelvis pending. CT of head pending.
<Ulises Palacios Jr., PA-C - Last Filed: 09/15/24 17:24>
*Critical Care Note
Total Time (30-74mins, 75-104mins- exclusive of procedures): Not Applicable
<Zach Bustamante PA-C - Last Filed: 09/15/24 15:58>
Update Note
Update Note:
CT of pelvis demonstrates nondisplaced greater trochanteric fracture left femur. CT head negative. Relayed these results to the patient. She is adamant about wanting to go home. She is accompanied by her sister who is concerned about her
function at home. She does have steps to go up into her house and is typically by herself but there is family close by. PT consult. Case management consulted.
<Ulises Palacios Jr., PA-C - Last Filed: 09/15/24 17:24>
Update Note
Update Note:
CT of pelvis demonstrates nondisplaced greater trochanteric fracture left femur. CT head negative. Relayed these results to the patient. She is adamant about wanting to go home. She is accompanied by her sister who is concerned about her
function at home. She does have steps to go up into her house and is typically by herself but there is family close by. PT consult. Case management consulted. '
1700: Robbi Palacios PA-C patient seen by physical therapy that recommends placement rather than going home. Patient is agreeable to this. Case management saw the patient and unable to place tonight plan to admit pending placement.
ED Attending Note
<Zach Bustamante PA-C - Last Filed: 09/15/24 15:58>
-
Portions of this chart may have been created with voice recognition software.� Occasional wrong word or��sound alike� substitutions may have occurred due to the inherent limitations of voice recognition software.
Discharge Plan
Departure
Patient Disposition: Admit
Date of Disposition: 09/15/24
Time of Disposition: 17:24
Admit to: Med/Surg
Admit to doctor: [place]
Presentation/result/management discussed w/ accepting MD/DO: Hospitalist
Patient with high blood pressure during this ER visit?: No
Condition: Good
Covid-19: Not Applicable
Discharge Problem:
Fracture of greater trochanter
Instructions: Muscle and Bone Pain (DC)
Prescriptions:
No Action
omeprazole [Prilosec] 40 mg Capsule,Delayed Release(Dr/Ec)
40 mg PO DAILY
simvastatin 20 mg Tablet
20 mg PO DAILY
hydrochlorothiazide 25 mg Tablet
25 mg PO DAILY
lisinopril 40 mg Tablet
40 mg PO DAILY
fenofibrate nanocrystallized 145 mg Tablet
145 mg PO DAILY
prochlorperazine maleate 10 mg Tablet
10 mg PO PRN PRN (Reason: nausea)
ondansetron 8 mg Tablet,Disintegrating
8 mg PO PRN PRN (Reason: nausea)
lidocaine-prilocaine 2.5-2.5 % Cream
1 applic topical PRN PRN (Reason: pain)
insulin glargine [Lantus Solostar U-100 Insulin] 100 unit/mL (3 mL) Insulin Pen
20 unit SC QPM
aspirin 81 mg Capsule
81 mg PO DAILY
M.V.I.
1 unit PO DAILY
Keytruda
1 unit IV .[id number]
fluorouracil
1 unit IV .[id number]
leucovorin calcium
1 unit IV .[id number]
oxaliplatin
1 unit IV .[id number]
loratadine [Claritin] 10 mg Tablet
10 mg PO DAILY PRN (Reason: for [place] )
Referrals:
Kathleen Manzano, DO [Family Provider] -
Activity Restrictions/Additional Instructions:
Use your walker when ambulating. Follow-up with your doctor. Return if worse
Interventions
Interventions:
*Risk Screen - Suicide Last Done: 09/15/24 14:03
*Neglect/Abuse Screening Last Done: 09/15/24 13:59
ED- Fall Risk Assessment Last Done: 09/15/24 14:04
*ED COVID-19 Vaccine History Last Done: 09/15/24 13:56
ED-Musculoskeletal Assessment Last Done: 09/15/24 14:04
Discharge Date and Time
Print Language: TAMAZIGHT
--- NOTE | 2024-09-15 14:34 | CM ---
Addendum entered by Peace Barajas RN 09/15/24 16:53:
PT met with patient and recommended against a home discharge. Patient was resistant to staying, but ultimately was willing to stay for discharge planning and further observation.
CM spoke with patient's friend/neighbor at bedside and patient's son via phone. Son stated that he believes patient would be resistant to rehab. Patient's son stated that he would be willing to have patient stay with him in [facility], but he
has concerns about transporting her to her appointments. Son plans to discuss discharge options with neighbor and other family members.
CM will remain available.
Addendum entered by Peace Barajas RN 09/15/24 15:53:
CM was advised that patient has a fracture. Patient wants to return home. CM is awaiting PT's evaluation.
Original Note:
SUHAS received updated from Maureen DEL VALLE at [facility]. Maureen expressed concern for patient regarding patient's ability to ambulate. CM forwarded Maureen's concerns to ED PA.
[2024-09-15] MEDS: NICODERM TRANSDERMAL 14 MG TRANSDERM (16:51)
--- NOTE | 2024-09-15 19:24 | HPS.HSE ---
Family Physician
-
Family Physician: Kathleen Manzano
Chief Complaint
-
left hip pain
History of Present Illness
The patient is a 74-year-old female with PMH significant for esophageal cancer, HTN, HLD, and IDDM, who presents to ED due to complaints of left hip pain. She was seen at the infusion center today for fluids, as she is actively receiving
chemotherapy for esophageal cancer, next chemo treatment next week. Of note, she had a fall 4 days prior, and has ongoing rib, hip and left chest pain. She also has headache, and is not anticoagulated. Due to pain, she's having ambulatory
dysfunction, with difficulty bearing weight on left leg due to hip pain. X-ray shows subtle mildly displaced avulsion fracture through the LEFT greater trochanter. PT eval in ED recommended pt be admitted for ambulatory dysfunction due to fracture,
patient unable to safely be dispo'd from ED.
Medical History
Past Medical History
Past Medical History: Reports Cancer (esophageal on chemo), HTN, Hypercholesterolemia and IDDM
Past Surgical History: Reports Gynocological (MICHAEL), Tonsilectomy and Other (multiple hernia repairs)
Social History
Tobacco: Smoker (1ppd (almost))
Alcohol: None
Drug: None
Family History
Family History: Not pertinent
Allergies / Home Medications
Allergies reflects when Allergies were last updated in [email or web address].
Home Medications with original date entered in [email or web address]
Allergy/Medication List:
Allergies
Allergy/AdvReac Type Severity Reaction Status Date / Time
acetaminophen [From Percocet] Allergy Vomiting Verified 09/15/24 12:18
ciprofloxacin [From Cipro] Allergy Rash Verified 09/15/24 12:18
oxycodone [From Percocet] Allergy Vomiting Verified 09/15/24 12:18
Penicillins Allergy Rash Verified 09/15/24 12:18
Home Medications
fenofibrate nanocrystallized 145 mg tablet 145 mg PO DAILY 06/18/24
hydrochlorothiazide 25 mg tablet 25 mg PO DAILY 06/18/24
insulin glargine 100 unit/mL (3 mL) subcutaneous pen (Lantus Solostar U-100 Insulin) 20 unit SC HS 06/18/24
lidocaine-prilocaine 2.5 %-2.5 % topical cream 1 applic topical DAILYPRN PRN port access 06/18/24
lisinopril 40 mg tablet 40 mg PO DAILY 06/18/24
ondansetron 8 mg disintegrating tablet 8 mg PO Q8HPRN PRN nausea 06/18/24
prochlorperazine maleate 10 mg tablet 10 mg PO Q6HPRN PRN nausea 06/18/24
simvastatin 20 mg tablet 20 mg PO HS 06/18/24
M.V.I. 1 unit IV Q2W 07/07/24
aspirin 81 mg capsule 81 mg PO DAILY 07/07/24
Keytruda 1 unit IV Q6W 07/22/24
fluorouracil 1 unit IV Q2W 07/22/24
leucovorin calcium 1 unit IV Q2W 07/22/24
oxaliplatin 1 unit IV Q2W 07/22/24
loratadine 10 mg tablet (Claritin) 10 mg PO DAILYPRN PRN allergy symptoms 09/15/24
omeprazole 20 mg capsule,delayed release 20 mg PO DAILY 09/15/24
Review of Systems
-
A 12 point ROS was completed and negative except as noted: Yes
Physical Exam
Vital Signs
Vital Signs
Temp Pulse Resp BP Pulse Ox
98.0 F 80 16 143/63 93
09/15/24 12:13 09/15/24 18:45 09/15/24 13:57 09/15/24 18:45 09/15/24 18:45
Physical Exam
General: Well Developed, Well Nourished and No Apparent Distress
HEENT: NormoCephalic, Anicteric and Moist mucous membranes
Respiratory: Clear
Cardiac: S1/S2 and Regular Rhythm
GI: Soft, Non Tender and Non Distended
Musculoskeletal: No Cyanosis, Edema, Left Lower Extremity (mild) and Edema, Right Lower Extremity (mild)
Skin: Warm and Dry
Neuro: AO x 3 and No Motor Deficits
Psych: Calm
Impression/Plan
-
IMPRESSION:The patient is a 74-year-old female with PMH significant for esophageal cancer, HTN, HLD, and IDDM, who presents to ED due to complaints of left hip pain. She was seen at the infusion center today for fluids, as she is actively receiving
chemotherapy for esophageal cancer, next chemo treatment next week. Of note, she had a fall 4 days prior, and has ongoing rib, hip and left chest pain. She also has headache, and is not anticoagulated. Due to pain, she's having ambulatory
dysfunction, with difficulty bearing weight on left leg due to hip pain. X-ray shows subtle mildly displaced avulsion fracture through the LEFT greater trochanter. PT eval in ED recommended pt be admitted for ambulatory dysfunction due to fracture,
patient unable to safely be dispo'd from ED.
#Fall, with Subtle mildly displaced avulsion fracture through the LEFT greater trochanter.
-PT/OT
-Ortho cx
-pain meds prn
#Esophageal CA-pt on chemo
-has PET scan scheduled for Saturday and does not want to miss PET scan if still in hospital
-cont supportive care
#IDDM
-cont Lantus 20 u QHS
-SSI
#Smoker, almost 1ppd
-nicotine patch 14 mg
#HTN
DVT proph-Lovenox
DNR/DNI
--- NOTE | 2024-09-15 20:30 | PTCARENOTE ---
Pt arrive to [facility] at 2030 from the ED on a stretcher. Full head to toe assessment and admission questions complete. Static air overlay in place. Bed locked and in lowest position. Call reyna within reach. Care ongoing.
[2024-09-15 22:01] LABS: Glucose - Point of Care 131 mg/dl (70-99)
[2024-09-15] MEDS: LANTUS 0.2 UNITS SC (22:04)
[2024-09-15] MEDS: LIPITOR 10 MG PO (22:04)
[2024-09-16 08:14] VITALS: BP 141/69
--- NOTE | 2024-09-16 08:14 | W.PN.UPDATE ---
Update Note
Progress Note Update
Patient seen on AM rounds. Full consult note to follow. Small, nondisplaced fracture of the very superior aspect of the left greater trochanter. This can be managed without surgery. Patient may be weight bearing as tolerated with assistive device.
We did discuss that pain may limit her in which case she may be partial weight bearing. Appreciate PT/OT input. D/c once medically stable. Follow up outpatient with ortho.
--- NOTE | 2024-09-16 08:15 | W.PN.HOSP.TC ---
Addendum entered and electronically signed by Scar Bennett MD 09/16/24 13:23:
Seen and examined by me independently in collaboration with the medical equipment repair technician.
Lab data and imaging data reviewed.
Addendum as below :
Patient with nonoperative left greater trochanteric nondisplaced fracture. Appreciate orthopedic input. Allowed to weight-bear as tolerated. Evaluated by PT. Home therapy recommended. Pain not much of an issue. Patient has Tylenol and also has
pain regimen for her cancer at home which she seldom uses. Advised to use it if needed.
Leukocytosis suspect secondary to her Neupogen shot received recently. Afebrile and nontoxic. No focal infective symptoms of respiratory tract or tract.
Medically stable for discharge back home.
Original Note:
Today's Communication/Plan
-
fu out patient with ortho in 4 weeks with repeat xray
d/c today
Assessment / Plan
Assessment / Plan
IMPRESSION:The patient is a 74-year-old female with PMH significant for esophageal cancer, HTN, HLD, and IDDM, who presents to ED due to complaints of left hip pain. She was seen at the infusion center today for fluids, as she is actively receiving
chemotherapy for esophageal cancer, next chemo treatment next week. Of note, she had a fall 4 days prior, and has ongoing rib, hip and left chest pain. She also has headache, and is not anticoagulated. Due to pain, she's having ambulatory
dysfunction, with difficulty bearing weight on left leg due to hip pain. X-ray shows subtle mildly displaced avulsion fracture through the LEFT greater trochanter. PT eval in ED recommended pt be admitted for ambulatory dysfunction due to fracture,
patient unable to safely be dispo'd from ED.
#Left hip pain s/p Fall
-Small, nondisplaced fracture of the very superior aspect of the left greater trochanter.
-appreciate ortho recs; can be managed without surgery
- weight bearing as tolerated with assistive device
-PT recs skilled rehab placement initially; patient insisting to go home, Pt ok with home physical therapy
-fu out patient with ortho in 4 weeks with repeat xray
-pain meds prn
#Esophageal CA-pt on chemo
-has PET scan scheduled for Saturday and does not want to miss PET scan if still in hospital
-cont supportive care
#IDDM
-cont Lantus 20 u QHS
-SSI
#Smoker, almost 1ppd
-nicotine patch 14 mg
#HTN
DVT proph-Lovenox
DNR/DNI
Anticipated Discharge: Today
Subjective/Interval History
-
Date of Service: September 16, 2024
AFVSS
Objective Data
-
Labs:
Laboratory Results
09/16/24
06:00
WBC Pending
Hgb Pending
Hct Pending
Plt Count Pending
Sodium Pending
Potassium Pending
Chloride Pending
Carbon Dioxide Pending
BUN Pending
Creatinine Pending
Glucose Pending
Calcium Pending
Vital Signs:
Vital Signs
Temp Pulse Resp BP Pulse Ox
98.5 F 74 18 152/68 98
09/15/24 23:50 09/15/24 23:50 09/15/24 23:50 09/15/24 23:50 09/15/24 23:50
I&O
09/15/24 09/16/24 09/17/24
06:59 06:59 06:59
Intake Total 480 / 480
Balance 480 / 480
Review of Systems
-
History Source: Patient
Respiratory: Reports No Symptoms
Cardiac: Reports No Symptoms
Abdomen/GI: Reports No Symptoms
Genitourinary: Reports No Symptoms
Musculoskeletal: Reports Joint Pain (Left hip)
Skin: Reports No Symptoms
Physical Exam
-
General: Well Developed, Well Nourished and No Apparent Distress
HEENT: Normocephalic
Respiratory: Clear to Auscultation
Cardiac: Regular Rhythm
GI: Soft and Nontender
Musculoskeletal: Negative No Edema
Skin: Warm and Dry
Neuro: Awake, Alert, Oriented, No Motor Deficits and Nonfocal/Grossly Intact
Psych: Calm
Data Reviewed
-
Diagnostic Radiology: Report Reviewed by me
CT Scan: Report Reviewed by me and Discussed with Patient
Labs: Labs Reviewed by me, Discussed with Physician and Discussed with Patient
[2024-09-16 08:31] LABS: Glucose - Point of Care 65 mg/dl (70-99)
--- NOTE | 2024-09-16 08:59 | CON.ORTHO ---
Consultation
-
Date/Time Consultation Requested: 09/15/2024; time unknown
Date/Time Consultation Performed: 09/16/2024; 0700
Requesting Provider: unknown
Performing Provider: Leeanne Moise PA-C for Dr. Sea Grant
Reason for Consultation: Left hip fracture
Consultation - Orthopedics
History
Ms. Mcconnell is a 74 year old female with PMH significant for esophageal cancer, HTN, HLD, and IDDM. She reports she sustained a fall from standing this past Saturday (09/12/2024), and has experienced ongoing pain in her left hip since that time. She
reports difficulty weight bearing secondary to her symptoms. She localizes pain to the lateral hip, but denies low back pain or radicular symptoms. She lives independently and ambulates without assistance at baseline. She reports any pain in her hip
is well controlled at present. She is eager for discharge home.
Allergies / Home Medications
Allergy/AdvReac Type Severity Reaction Status Date / Time
acetaminophen [From Percocet] Allergy Vomiting Verified 09/15/24 12:18
ciprofloxacin [From Cipro] Allergy Rash Verified 09/15/24 12:18
oxycodone [From Percocet] Allergy Vomiting Verified 09/15/24 12:18
Penicillins Allergy Rash Verified 09/15/24 12:18
�Medication �Instructions �Recorded
fenofibrate nanocrystallized 145 145 mg PO DAILY 06/18/24
mg tablet
hydrochlorothiazide 25 mg tablet 25 mg PO DAILY 06/18/24
insulin glargine 100 unit/mL (3 20 unit SC HS 06/18/24
mL) subcutaneous pen (Lantus
Solostar U-100 Insulin)
lidocaine-prilocaine 2.5 %-2.5 % 1 applic topical DAILYPRN PRN port 06/18/24
topical cream access
lisinopril 40 mg tablet 40 mg PO DAILY 06/18/24
ondansetron 8 mg disintegrating 8 mg PO Q8HPRN PRN nausea 06/18/24
tablet
prochlorperazine maleate 10 mg 10 mg PO Q6HPRN PRN nausea 06/18/24
tablet
simvastatin 20 mg tablet 20 mg PO HS 06/18/24
M.V.I. 1 unit IV Q2W 07/07/24
aspirin 81 mg capsule 81 mg PO DAILY 07/07/24
Keytruda 1 unit IV Q6W 07/22/24
fluorouracil 1 unit IV Q2W 07/22/24
leucovorin calcium 1 unit IV Q2W 07/22/24
oxaliplatin 1 unit IV Q2W 07/22/24
loratadine 10 mg tablet (Claritin) 10 mg PO DAILYPRN PRN allergy 09/15/24
symptoms
omeprazole 20 mg capsule,delayed 20 mg PO DAILY 09/15/24
release
Vital Signs / Lab Results
Temp Pulse Resp BP Pulse Ox
98.1 F 78 20 141/69 98
09/16/24 08:14 09/16/24 08:14 09/16/24 08:14 09/16/24 08:14 09/16/24 08:14
XR Left Hip IMPRESSION:
No acute radiographic abnormalities appreciated.
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
CT Pelvis IMPRESSION:
1. Subtle mildly displaced avulsion fracture through the LEFT greater trochanter.
2. Mild osteoarthritis of the left hip.
3. Bulky calcified plaque at the aortic bifurcation extending into the left common iliac artery, likely flow-limiting.
Directed exam of the left hip reveals no obvious erythema, ecchymosis, edema or lesions. Very mild tenderness to palpation over the most proximal aspect of the greater trochanter. No tenderness elsewhere in the hip. Thigh soft and compressible.
Negative log roll. Mild lateral hip discomfort with hip ROM. Calf soft and nontender. Neurovascularly intact distally.
Assessment / Plan
Avulsion fracture of greater trochanter
--Cynthia's CT scan was reviewed with her today which reveals a small avulsion fracture from the most proximal aspect of her greater trochanter. Thankfully, this can be managed without surgical intervention. She may continue weight bearing as
tolerated with an assistive device. We did discuss that pain may limit her weight bearing, so if needed, she may be PWB. We appreciate input from PT/OT today. Discharge once stable.
--Pain control prn.
--We will plan to see her in the office in about 4 weeks for repeat x-rays.
--Orthopedics will sign off for now. Please reach out with any additional orthopedic questions or concerns.
[2024-09-16] MEDS: ORETIC 25 MG PO (09:37)
[2024-09-16] MEDS: ZESTRIL 40 MG PO (09:37)
[2024-09-16] MEDS: ASPIR LOW (ENTERIC COATED) 81 MG PO (09:37)
[2024-09-16] MEDS: TRICOR 145 MG PO (09:37)
[2024-09-16] MEDS: PROTONIX 40 MG PO (09:37)
[2024-09-16 10:09] VITALS: BP 165/73; PULSE 67; O2SAT 96
[2024-09-16 10:11] VITALS: BP 163/73; PULSE 67; O2SAT 96
--- NOTE | 2024-09-16 10:54 | W.DCSUMMARY ---
Documented by User: Oscar Floyd MD, Resident 09/16/24 11:04
Discharge Summary
Discharge Data
Date of Admission: 09/15/24
Date of Discharge: 09/16/24
-
Pending Results: No
Hospital Course
Discharging Physician : Oscar Floyd MD; Scar Bennett MD
Disposition : Home
Primary care physician : unknown
Principal Discharge diagnosis : Avulsion fracture of greater trochanter (Left)
Chronic Discharge diagnosis : Esophageal cancer, IDDM, smoker, hypertension, hyperlipidemia
Hospital Course : The patient is a 74-year-old female with PMH significant for esophageal cancer, HTN, HLD, and IDDM, who presented to ED due to complaints of left hip pain. She was seen at the infusion center on 09/15 for fluids, as she is
actively receiving chemotherapy for esophageal cancer, next chemo treatment next week. Of note, she had a fall 4 days prior, and has ongoing rib, hip and left chest pain. She also had headache on arrival, and is not anticoagulated. Due to pain, she
had ambulatory dysfunction, with difficulty bearing weight on left leg due to hip pain. X-ray showed subtle mildly displaced avulsion fracture through the LEFT greater trochanter. PT eval in ED recommended pt be admitted for ambulatory dysfunction
due to fracture, patient was unable to safely be discharged from ED. head CT was performed which showed no intra acute intracranial abnormality. Orthopedic was consulted, no surgical recommendation. She may continue weight bearing as tolerated with
an assistive device. We did discuss that pain may limit her weight bearing, so if needed, she may be partial weightbearing. Physical therapy evaluated her and recommended skilled rehab initially, however patient refused and insisted on going home
today, evaluated again on 09/16/2024 and recommend home physical therapy. Patient will follow-up with orthopedic in 4 weeks for repeat x-ray. Patient was medically stable for discharge.
Important imaging findings : CR Chest - 2 Views
IMPRESSION:
Small focal opacity within the peripheral left lung base, likely atelectasis. No pleural effusions or pneumothorax.
X-ray hip left:
IMPRESSION:
No acute radiographic abnormalities appreciated
CT Head W/o Iv Contrast:IMPRESSION:No acute intracranial abnormality.
CT Pelvis W/o Iv Contrast:
FINDINGS:
There is a subtle, minimally displaced avulsion fracture through the left greater trochanter. There is mild osteoarthritis of the left hip and pubic symphysis. Mild to moderate disc disease within the lumbar spine at L4-5 and L5-S1.
No acute normality's within the pelvis. No free fluid. The uterus is surgically absent. No pelvic lymphadenopathy. Moderate amount stool within distal colon with scattered distal colonic diverticulosis. Bulky calcified plaque within the distal
abdominal aorta which extends into the bifurcation and left common iliac artery, likely flow-limiting.
IMPRESSION:
1. Subtle mildly displaced avulsion fracture through the LEFT greater trochanter.
2. Mild osteoarthritis of the left hip.
3. Bulky calcified plaque at the aortic bifurcation extending into the left common iliac artery, likely flow-limiting.
Discharge Plan
-
Patient Disposition: Home (Routine Discharge)
Discharge Diagnosis/Procedures: Avulsion fracture of greater trochanter (Left)
Condition: Good
Diet: Diabetic, Carb Controlled
Activity: With assistance
Driving Restrictions: As prior to admission
Bathing Restrictions: None
Other Services: VN, PT and OT
Referrals:
Sea Grant MD [Active] - in three to four weeks
Kathleen Manzano DO [Family Provider] - in less than 1 week
Prescriptions:
Continued
simvastatin 20 mg Tablet
20 mg PO HS
hydrochlorothiazide 25 mg Tablet
25 mg PO DAILY
lisinopril 40 mg Tablet
40 mg PO DAILY
fenofibrate nanocrystallized 145 mg Tablet
145 mg PO DAILY
prochlorperazine maleate 10 mg Tablet
10 mg PO Q6HPRN PRN (Reason: nausea)
ondansetron 8 mg Tablet,Disintegrating
8 mg PO Q8HPRN PRN (Reason: nausea)
lidocaine-prilocaine 2.5-2.5 % Cream
1 applic topical DAILYPRN PRN (Reason: port access)
insulin glargine [Lantus Solostar U-100 Insulin] 100 unit/mL (3 mL) Insulin Pen
20 unit SC HS
aspirin 81 mg Capsule
81 mg PO DAILY
M.V.I.
1 unit IV Q2W
Patient Comments:
09/15/24: Before chemo
Rx Instructions:
on saturday
Keytruda
1 unit IV Q6W
Rx Instructions:
on saturday
fluorouracil
1 unit IV Q2W
Rx Instructions:
on saturday
leucovorin calcium
1 unit IV Q2W
Rx Instructions:
on saturday
oxaliplatin
1 unit IV Q2W
Rx Instructions:
on saturday
loratadine [Claritin] 10 mg Tablet
10 mg PO DAILYPRN PRN (Reason: allergy symptoms)
omeprazole 20 mg Capsule,Delayed Release(Dr/Ec)
20 mg PO DAILY
Discharge Orders:
Discharge Patient (As Directed); Ordered 09/16/24
Ordered By: Oscar Floyd
Discharge Date and Time
Print Language: SLOVENIAN

Documented by User: Scar Bennett MD 09/16/24 13:22
Discharge Summary
Discharge Data
Date of Admission: 09/15/24
Date of Discharge: 09/16/24
Discharge Plan
-
Patient Disposition: Home (Routine Discharge)
Discharge Diagnosis/Procedures: Avulsion fracture of greater trochanter (Left)
Condition: Good
Diet: Diabetic, Carb Controlled
Activity: With assistance
Driving Restrictions: As prior to admission
Bathing Restrictions: None
Other Services: VN, PT and OT
Referrals:
Sea Grant MD [Active] - in three to four weeks
Kathleen Manzano DO [Family Provider] - in less than 1 week
Prescriptions:
Continued
simvastatin 20 mg Tablet
20 mg PO HS
hydrochlorothiazide 25 mg Tablet
25 mg PO DAILY
lisinopril 40 mg Tablet
40 mg PO DAILY
fenofibrate nanocrystallized 145 mg Tablet
145 mg PO DAILY
prochlorperazine maleate 10 mg Tablet
10 mg PO Q6HPRN PRN (Reason: nausea)
ondansetron 8 mg Tablet,Disintegrating
8 mg PO Q8HPRN PRN (Reason: nausea)
lidocaine-prilocaine 2.5-2.5 % Cream
1 applic topical DAILYPRN PRN (Reason: port access)
insulin glargine [Lantus Solostar U-100 Insulin] 100 unit/mL (3 mL) Insulin Pen
20 unit SC HS
aspirin 81 mg Capsule
81 mg PO DAILY
M.V.I.
1 unit IV Q2W
Patient Comments:
09/15/24: Before chemo
Rx Instructions:
on saturday
Keytruda
1 unit IV Q6W
Rx Instructions:
on saturday
fluorouracil
1 unit IV Q2W
Rx Instructions:
on saturday
leucovorin calcium
1 unit IV Q2W
Rx Instructions:
on saturday
oxaliplatin
1 unit IV Q2W
Rx Instructions:
on saturday
loratadine [Claritin] 10 mg Tablet
10 mg PO DAILYPRN PRN (Reason: allergy symptoms)
omeprazole 20 mg Capsule,Delayed Release(Dr/Ec)
20 mg PO DAILY
Discharge Orders:
Discharge Patient (As Directed); Ordered 09/16/24
Ordered By: Oscar Floyd
Discharge Date and Time
Print Language: SLOVENIAN
--- NOTE | 2024-09-16 11:20 | CM ---
Met with pt at bedside
IA completed
PT now recommending HH
Discussed with pt - no preference
TT set to [facility] Liaison for home care needs
Spoke with pts son - updated of discharge plan
Given [facility]
Sister to transport to home
Plan - home with [facility]
--- NOTE | 2024-09-16 11:22 | VNURNOTE ---
Home Health Liaison met with patient at bedside to discuss [facility] nurse/therapy, visits, schedule and homebound status. Patient is agreeable and understands that visits at home will be 2-3 x per week to assess and teach medical management. [facility]
brochure provided with contact information. Patient is aware that [facility] will contact them for start of care in 1-2 days after discharge from .
[facility] referral completed in Care Port.
[2024-09-16 12:00] LABS: Glucose - Point of Care 136 mg/dl (70-99)
[2024-09-16 13:51] VITALS: BP 160/72
== END 2024-09-16 15:34 | disposition home health service (06) ==
LOC: 2 SOUTH 21:03
PROVIDERS: ADMITTING PHYSICIAN Internal Medicine; ATTENDING PHYSICIAN Internal Medicine; CONSULT PHYSICIAN Orthopaedic Surgery; EMERGENCY PHYSICIAN Emergency Medicine; FAMILY PHYSICIAN Family Medicine
DX: S72.115A Nondisplaced fracture of greater trochanter of left femur, initial encounter for closed fracture (principal); M16.12 Unilateral primary osteoarthritis, left hip; M25.552 Pain in left hip; C15.9 Malignant neoplasm of esophagus, unspecified; W19.XXXA Unspecified fall, initial encounter; Y93.9 Activity, unspecified; Y92.9 Unspecified place or not applicable; D72.829 Elevated white blood cell count, unspecified; G44.309 Post-traumatic headache, unspecified, not intractable; R26.2 Difficulty in walking, not elsewhere classified; E78.00 Pure hypercholesterolemia, unspecified; I70.0 Atherosclerosis of aorta; I10 Essential (primary) hypertension; E11.9 Type 2 diabetes mellitus without complications; R07.81 Pleurodynia; F17.210 Nicotine dependence, cigarettes, uncomplicated; Z88.0 Allergy status to penicillin; Z92.21 Personal history of antineoplastic chemotherapy; Z88.5 Allergy status to narcotic agent; Z88.1 Allergy status to other antibiotic agents; Z79.4 Long term (current) use of insulin; Z66 Do not resuscitate; Z60.2 Problems related to living alone
CPT/HCPCS: 70450; 71046; 72192; 73502; 82962; 97116; 97166; 97530; 99285; G0378

== ENCOUNTER → 2024-09-23 14:27 | Outpatient (REF) | payer OTHER, SELFPAY | LOC: PET 14:27 | PROVIDERS: ATTENDING PHYSICIAN Internal Medicine Hematology & Oncology | DX: C15.4 Malignant neoplasm of middle third of esophagus (principal) | CPT/HCPCS: 78815; A9552 ==

== ENCOUNTER 2024-09-24 14:03 | Outpatient (RCR) | payer OTHER, SELFPAY ==
[2024-09-07 11:22] LABS: ALT (SGPT) 18 U/L (0-35); AST (SGOT) 31 U/L (14-36); Alkaline Phosphatase 102 U/L (38-126); Blood Urea Nitrogen 17 mg/dl (7-17); Calcium 10.3 mg/dl (8.4-10.2); Carbon Dioxide 28 mmol/L (22-30); Chloride 100 mmol/L (98-107); Glucose 126 mg/dl (70-99); Potassium 3.5 mmol/L (3.5-5.1); Sodium 138 mmol/L (135-145); Total Bilirubin 0.7 mg/dl (0.2-1.3); Total Protein 6.9 g/dl (6.3-8.2); eGFR > 60.00
[2024-09-07 11:38] LABS: % Basophils 0.6 % (0-2); % Eosinophils 0.3 % (0-6); % Immature Granulocytes 1.6 % (0-0.5); % Lymphocytes 17.6 % (20.5-51.1); % Monocytes 8.4 % (1.7-9.3); % Neutrophils 71.5 % (42.2-75.2); Absolute Basophils 0.1 10^3/uL (0-0.2); Absolute Immature Granulocytes 0.2 10^3/uL (0-0.05); Absolute Lymphocytes 2.6 10^3/uL (1.2-3.4); Absolute Monocytes 1.2 10^3/uL (0.1-0.6); Absolute Neutrophils 10.4 10^3/uL (1.4-6.5); Hematocrit 40.8 % (37.0-47.0); Hemoglobin 13.1 g/dL (12.0-16.0); Mean Corp Hgb Conc. 32.1 g/dL (33.0-37.0); Mean Corpuscular Hgb 30.4 pg (27.0-31.0); Mean Corpuscular Volume 94.7 fL (81.0-99.0); Mean Platelet Volume 10.5 fL (7.4-10.4); Nucleated Red Blood Cells % 0 %; Platelet Count 229 10^3/uL (130-400); Red Blood Cell Count 4.31 10^6/uL (4.20-5.40); Red Cell Dist. Width 20.7 % (11.5-14.5); White Blood Cell Count 14.6 10^3/uL (4.8-10.8)
--- NOTE | 2024-09-07 14:33 | SURV.PHONR ---
Survivorship Phone Log
- Communication
Date Spoke With Comments
07/26/2024 LM LM for patient to discuss treatment and overall well being. Will await return call to office.
09/07/2024 LM LM for patient. Will attempt to see patient in person at visit 09/09.
[2024-09-08 08:35] VITALS: BP 154/71
[2024-09-08] MEDS: EMEND 150 MG IV (09:18)
[2024-09-08] MEDS: DECADRON 51 MG IV (09:54)
[2024-09-08] MEDS: ALOXI 5 MG IV (10:23)
[2024-09-08] MEDS: OXALIPLATIN 278.2 MG IV (10:26)
[2024-09-08] MEDS: WELLCOVORIN 283.2 MG IV (10:27)
[2024-09-08] MEDS: FLUOROURACIL 13.2 MG IV (12:49)
[2024-09-08] MEDS: FLUOROURACIL 92 ML IV (12:50)
[2024-09-08] MEDS: FLUOROURACIL 92 MG IV (12:50)
[2024-09-10 14:00] VITALS: BP 138/62
[2024-09-10] MEDS: NYVEPRIA 6 MG SC (14:08)
[2024-09-10] MEDS: [UNRECOGNIZED DRUG - OTHER] 1 IV (14:09)
[2024-09-15 10:30] VITALS: BP 142/60
--- NOTE | 2024-09-15 10:30 | PTCARENOTE ---
1030: pt arrived in waiting room sitting in chair and c/o left hip pain. Pt's sister stating 'She had a bad fall Saturday morning, she hit her head and can barely move around now.' Pt c/o left hip pain 10/10 on pain scale, describes it as a sharp
throbbing pain. Pt able to stand with assistance and with cane bp sitting was: 142/60, hr 84, standing was; 126/63, hr 98. Pt assisted into w/c and brought back to room. Port access and labs drawn, NSS hung per orders. Pt in no distress, and
states is more comfortable while sitting and not moving around. TT [place] and TT send to ER to let them know that pt would be coming down after fluids completed. Will follow.
[2024-09-15 10:35] VITALS: BP 126/63
[2024-09-15 10:54] LABS: % Basophils 0.2 % (0-2); % Eosinophils 1.8 % (0-6); % Immature Granulocytes 0.6 % (0-0.5); % Lymphocytes 14.1 % (20.5-51.1); % Monocytes 2.5 % (1.7-9.3); % Neutrophils 80.8 % (42.2-75.2); Absolute Eosinophils 0.3 10^3/uL (0-0.7); Absolute Immature Granulocytes 0.1 10^3/uL (0-0.05); Absolute Lymphocytes 2.2 10^3/uL (1.2-3.4); Absolute Monocytes 0.4 10^3/uL (0.1-0.6); Absolute Neutrophils 12.4 10^3/uL (1.4-6.5); Hemoglobin 11.8 g/dL (12.0-16.0); Mean Corp Hgb Conc. 33.7 g/dL (33.0-37.0); Mean Corpuscular Hgb 30.9 pg (27.0-31.0); Mean Corpuscular Volume 91.6 fL (81.0-99.0); Mean Platelet Volume 9.9 fL (7.4-10.4); Platelet Count 172 10^3/uL (130-400); Red Blood Cell Count 3.82 10^6/uL (4.20-5.40); Red Cell Dist. Width 18.9 % (11.5-14.5); White Blood Cell Count 15.3 10^3/uL (4.8-10.8)
[2024-09-15] MEDS: NSS 1000 IV (10:56)
--- NOTE | 2024-09-15 11:38 | PTCARENOTE ---
Pt resting in chair, sister at bedside, offers no complaints at this time.
[2024-09-15 11:39] LABS: ALT (SGPT) 18 U/L (0-35); AST (SGOT) 30 U/L (14-36); Albumin 3.8 g/dl (3.5-5.0); Alkaline Phosphatase 161 U/L (38-126); Blood Urea Nitrogen 15 mg/dl (7-17); Calcium 9.9 mg/dl (8.4-10.2); Carbon Dioxide 23 mmol/L (22-30); Chloride 103 mmol/L (98-107); Glucose 176 mg/dl (70-99); Potassium 3.6 mmol/L (3.5-5.1); Sodium 136 mmol/L (135-145); Total Bilirubin 0.7 mg/dl (0.2-1.3); Total Protein 6.2 g/dl (6.3-8.2); eGFR > 60.00
[2024-09-15 11:52] LABS: Free T3 2.73 pg/ml (2.77-5.27); Free T4 1.41 ng/dl (0.78-2.19)
[2024-09-15 11:55] VITALS: BP 176/76
[2024-09-15 12:06] LABS: TSH 3.82 uIU/ml (0.47-4.68)
--- NOTE | 2024-09-15 12:15 | PTCARENOTE ---
1200: pt transported via wheelchair with another RN, and pt's sister.
[2024-09-21 10:05] LABS: % Basophils 1.1 % (0-2); % Eosinophils 3.3 % (0-6); % Immature Granulocytes 2.8 % (0-0.5); % Lymphocytes 23.1 % (20.5-51.1); % Monocytes 11.6 % (1.7-9.3); % Neutrophils 58.1 % (42.2-75.2); Absolute Basophils 0.1 10^3/uL (0-0.2); Absolute Eosinophils 0.3 10^3/uL (0-0.7); Absolute Immature Granulocytes 0.3 10^3/uL (0-0.05); Absolute Lymphocytes 2.2 10^3/uL (1.2-3.4); Absolute Monocytes 1.1 10^3/uL (0.1-0.6); Absolute Neutrophils 5.5 10^3/uL (1.4-6.5); Hematocrit 38.5 % (37.0-47.0); Hemoglobin 12.5 g/dL (12.0-16.0); Mean Corp Hgb Conc. 32.5 g/dL (33.0-37.0); Mean Corpuscular Hgb 30.1 pg (27.0-31.0); Mean Corpuscular Volume 92.8 fL (81.0-99.0); Mean Platelet Volume 10.2 fL (7.4-10.4); Nucleated Red Blood Cells % 0 %; Platelet Count 228 10^3/uL (130-400); Red Blood Cell Count 4.15 10^6/uL (4.20-5.40); Red Cell Dist. Width 19.1 % (11.5-14.5); White Blood Cell Count 9.5 10^3/uL (4.8-10.8)
[2024-09-21 10:34] LABS: ALT (SGPT) 12 U/L (0-35); AST (SGOT) 21 U/L (14-36); Albumin 3.4 g/dl (3.5-5.0); Alkaline Phosphatase 119 U/L (38-126); Blood Urea Nitrogen 12 mg/dl (7-17); Carbon Dioxide 27 mmol/L (22-30); Chloride 100 mmol/L (98-107); Glucose 90 mg/dl (70-99); Potassium 3.9 mmol/L (3.5-5.1); Sodium 135 mmol/L (135-145); Total Bilirubin 0.5 mg/dl (0.2-1.3); Total Protein 6.3 g/dl (6.3-8.2); eGFR > 60.00
[2024-09-22 08:50] VITALS: BP 109/86
[2024-09-22] MEDS: EMEND 150 MG IV (09:14)
[2024-09-22] MEDS: ALOXI 5 MG IV (09:15)
[2024-09-22] MEDS: DECADRON 51 MG IV (09:48)
[2024-09-22] MEDS: OXALIPLATIN 278.2 MG IV (10:23)
[2024-09-22] MEDS: WELLCOVORIN 283.2 MG IV (10:23)
[2024-09-22] MEDS: FLUOROURACIL 13.2 MG IV (13:01)
[2024-09-22] MEDS: FLUOROURACIL 92 ML IV (13:02)
[2024-09-22] MEDS: FLUOROURACIL 92 MG IV (13:02)
[2024-09-24 14:00] VITALS: BP 117/79
[2024-09-24] MEDS: NYVEPRIA 6 MG SC (14:19)
[2024-09-24] MEDS: [UNRECOGNIZED DRUG - OTHER] 1 IV (14:19)
== END 2024-10-06 23:59 | disposition home or self-care (01) ==
LOC: OID 14:03
PROVIDERS: ATTENDING PHYSICIAN Internal Medicine Hematology & Oncology; FAMILY PHYSICIAN Family Medicine
DX: C15.4 Malignant neoplasm of middle third of esophagus (principal); C78.7 Secondary malignant neoplasm of liver and intrahepatic bile duct; D50.9 Iron deficiency anemia, unspecified; Z72.0 Tobacco use; Z51.11 Encounter for antineoplastic chemotherapy; Z68.29 Body mass index [BMI] 29.0-29.9, adult; Z87.891 Personal history of nicotine dependence; Z86.0100 Personal history of colon polyps, unspecified
CPT/HCPCS: 36415; 36591; 80053; 84439; 84443; 84481; 85025; 96360; 96367; 96368; 96372; 96375; 96409; 96413; 96415; 96416; J1453; J2469; J9263; Q5122

== ENCOUNTER 2024-10-20 09:55 | Outpatient (RCR) | payer OTHER, SELFPAY ==
[2024-10-20 10:00] VITALS: BP 139/72
[2024-10-20 10:17] LABS: % Basophils 0.3 % (0-2); % Eosinophils 0.4 % (0-6); % Immature Granulocytes 0.2 % (0-0.5); % Lymphocytes 9.9 % (20.5-51.1); % Neutrophils 81.2 % (42.2-75.2); Absolute Eosinophils 0.1 10^3/uL (0-0.7); Absolute Lymphocytes 1.5 10^3/uL (1.2-3.4); Absolute Monocytes 1.2 10^3/uL (0.1-0.6); Absolute Neutrophils 12.4 10^3/uL (1.4-6.5); Hematocrit 35.9 % (37.0-47.0); Hemoglobin 12.2 g/dL (12.0-16.0); Mean Corpuscular Volume 91.3 fL (81.0-99.0); Mean Platelet Volume 9.7 fL (7.4-10.4); Platelet Count 318 10^3/uL (130-400); Red Blood Cell Count 3.93 10^6/uL (4.20-5.40); Red Cell Dist. Width 16.7 % (11.5-14.5); White Blood Cell Count 15.2 10^3/uL (4.8-10.8)
[2024-10-20] MEDS: KEYTRUDA 116 MG IV (10:19)
[2024-10-20 11:19] LABS: ALT (SGPT) < 10 U/L (0-35); AST (SGOT) 18 U/L (14-36); Albumin 3.3 g/dl (3.5-5.0); Alkaline Phosphatase 109 U/L (38-126); Blood Urea Nitrogen 22 mg/dl (7-17); Calcium 10.6 mg/dl (8.4-10.2); Carbon Dioxide 28 mmol/L (22-30); Chloride 96 mmol/L (98-107); Glucose 76 mg/dl (70-99); Potassium 3.5 mmol/L (3.5-5.1); Sodium 131 mmol/L (135-145); Total Bilirubin 0.7 mg/dl (0.2-1.3); Total Protein 6.6 g/dl (6.3-8.2); eGFR > 60.00
[2024-10-20 11:37] LABS: Free T3 2.52 pg/ml (2.77-5.27); Free T4 1.52 ng/dl (0.78-2.19)
== END 2024-10-21 10:23 | disposition home or self-care (01) ==
LOC: OID 09:55
PROVIDERS: ATTENDING PHYSICIAN Internal Medicine Hematology & Oncology; FAMILY PHYSICIAN Family Medicine
DX: Z51.11 Encounter for antineoplastic chemotherapy (principal); C15.4 Malignant neoplasm of middle third of esophagus; C78.7 Secondary malignant neoplasm of liver and intrahepatic bile duct; D50.9 Iron deficiency anemia, unspecified; Z68.29 Body mass index [BMI] 29.0-29.9, adult; Z86.0100 Personal history of colon polyps, unspecified; Z87.891 Personal history of nicotine dependence
CPT/HCPCS: 80053; 84439; 84443; 84481; 85025; 96413; J9271

== ENCOUNTER 2024-11-19 13:04 | Outpatient (RCR) | payer OTHER, SELFPAY ==
[2024-11-19 13:30] VITALS: BP 132/68
[2024-11-19] MEDS: AREDIA 280 MG IV (13:38)
[2024-11-19 14:11] LABS: Blood Urea Nitrogen 37 mg/dl (7-17); Calcium 11.7 mg/dl (8.4-10.2); Carbon Dioxide 31 mmol/L (22-30); Chloride 97 mmol/L (98-107); Glucose 237 mg/dl (70-99); Potassium 3.4 mmol/L (3.5-5.1); Sodium 133 mmol/L (135-145); eGFR > 60.00
[2024-11-19 15:44] VITALS: BP 110/62
== END 2024-12-04 23:59 | disposition home or self-care (01) ==
LOC: OID 13:04
PROVIDERS: ATTENDING PHYSICIAN Internal Medicine Hematology & Oncology; FAMILY PHYSICIAN Family Medicine
DX: C15.4 Malignant neoplasm of middle third of esophagus (principal); C78.7 Secondary malignant neoplasm of liver and intrahepatic bile duct; D50.9 Iron deficiency anemia, unspecified; Z72.0 Tobacco use; Z68.29 Body mass index [BMI] 29.0-29.9, adult; Z51.11 Encounter for antineoplastic chemotherapy; Z86.0100 Personal history of colon polyps, unspecified; Z87.891 Personal history of nicotine dependence
CPT/HCPCS: 80048; 96365; 96366; J2430

== ENCOUNTER 2024-11-23 20:24 | Inpatient (IN) | payer OTHER, SELFPAY ==
[2024-11-23] VITALS (10 sets, daily range): BP systolic 123–150; BP diastolic 58–88; BMI 21.1; BMI 20.4; BMI 20.6
--- NOTE | 2024-11-23 15:39 | EDRN ---
Pt states she started w/ diarrhea since Saturday. Pt is presently on Keytruda which she had 6 weeks ago. On pt had an infusion to reduce her calcium. Pt is having diarrhea, going about 10 times a day totally liquid for past few days, worse
today.
--- NOTE | 2024-11-23 15:53 | EDRN ---
IV VAT PALLAVI Logan called to access port in [facility] and draw bloods for lab.
--- NOTE | 2024-11-23 16:10 | EDRN ---
Doreen IV VAT RN in w/ pt to access [facility] port and obtain ordered blood work.
--- NOTE | 2024-11-23 16:25 | ED.GENMED ---
History of Present Illness
<Michelle Lira PA-C - Last Filed: 11/25/24 07:20>
General
Chief Complaint: Abdominal Symptoms
Source: patient
Exam Limitations: none
Time Seen by Provider: 11/23/24 15:09
Nursing documentation reviewed up to this point in time: agreed with
History of Present Illness
History of Present Illness:
74 y/o F with h/o esophageal cancer started chemo in may
PET scan in september shows her disease is responding well
pt started having diarrhea the past fewdays
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
after that, she started having diarreha some where between 5-10 watery stools per day
it does have a foul smell
she feels slightly weak
she denies bloody stool vomiting, abdomian pain
she staretd steroids last week as well 8 mg
and has been able to keep them down
no fever, chills, chest pain, shortness of breath
also started keytrude a few weeks ago
has had a little idarrhea but nothing as bad as now
Past History
<Michelle Lira PA-C - Last Filed: 11/25/24 07:20>
Past History
ED Past Medical History: Cancer (Esophageal CA), HTN, Hypercholesterolemia and IDDM
Social History
Tobacco: Non-smoker
Alcohol: None
Review of Systems
<LUIS FERNANDO Lopez Last Filed: 11/25/24 07:20>
Review of Systems
Allergies reviewed?: Yes
All Other Systems: Not applicable
Phy Exam
<LUIS FERNANDO Lopez Last Filed: 11/25/24 07:20>
Physical Exam
Physical Exam:
GENERAL: Alert , in no apparent distress, wiped out
EYE: pupils equal and reactive
NECK: Supple
ENT: o/p clr, mmm.
CARDIAC: Regular rate and rhythm
LUNGS: rhonchi b/l, occ cough, dyspnea
ABDOMEN: Soft, without focal tenderness, no r/g, no cvat, normal bowel sounds
NEUROLOGICAL: Alert and oriented, no focal neuro deficits
SKIN: Warm and dry, skin intact. pale
MUSCULOSKELETAL: moderate edema, pitting
PSYCH: Normal and appropriate interaction.
Course
<Michelle Lira PA-C - Last Filed: 11/25/24 07:20>
Orders/Labs/Results
Orders:
Orders
11/23/24 15:36
C DIFF [C difficile Antigen & Toxins] Urgent
SHAHNAZ Source: Feces/Stool
Specimen Description:
Stool Culture Urgent
SHAHNAZ Source: Feces/Stool
Specimen Description:
11/23/24 15:37
Electrocardiogram (*1) Stat
Reason for Study: Other
Other Reason for Exam: GI Bleed
EKG- Treatment ONCE
IV Insert/Care/Rem.- Treatment PRN
11/23/24 16:18
Type+Screen Urgent
Complete Blood Count/With Diff Urgent
Comprehensive Metabolic Panel Urgent
Ionized Calcium Urgent
Lipase Urgent
Magnesium Urgent
NT-proBNP Urgent
Comment: ADD ON
Phos [Phosphorus] Urgent
11/23/24 16:30
CR Chest - 2 Views Urgent
Comment:
Reason For Exam: edema
11/23/24 16:39
Add On- LAB Urgent
Tests Added?: pth
11/23/24 16:40
0.9% Sodium Chloride 500 ml [Nss] 500 ml IV BOLUS
11/23/24 17:09
ABO2 Urgent
BBK Wristband Number:
Associate notified that ABO2 has been ordered: [id number]
Date: 11/23/24
Time: 16:40
Product Builder ID: [id number]
11/23/24 17:10
Nicotine [Nicoderm Transdermal] 21 mg .ROUTE .STK-MED ONE
11/23/24 17:25
Add On- LAB Urgent
Comments:: tube in lab
Tests Added?: Pro-BNP
11/23/24 18:00
Nicotine [Nicoderm Transdermal] 21 mg TRANSDERM DAILY
11/23/24 19:07
Azithromycin 500 mg/250 ml [Zithromax Infusion] 500 mg in 250 ml IV NOW
11/23/24 19:50
Aztreonam [Azactam] 1,000 mg IV NOW STA
11/23/24 19:53
Admit/Transfer Patient As Directed
Co-Sign Provider:
Level of Care: Inpatient admission
Assign to:: Medical/Surgical
Physician / Group: htay
Diagnosis: acute on chronic dirrhea, dehydration, hyponatremia, weakness
Reason for Hospitalization: acute on chronic dirrhea, dehydration, hyponatremia, weakness
Expected length of stay greater than two midnights?: Yes
ELOS- Estimated Length of Stay in days: 3
I certify the patient meets the requirements for IP care: Yes
Procalcitonin Routine
PCT Algorithmm Indication: Respiratory
11/23/24 19:55
Code Status As Directed
Resuscitation Status: Full Code
11/23/24 20:05
Code Status As Directed
Resuscitation Status: Do not resuscitate
Reached after discussion with pt or family/Healthcare POA: Yes
11/23/24 20:06
DNR Bracelet Application ONCE
11/23/24 21:36
0.9% Sodium Chloride 1000 ml [Nss] 1,000 ml IV 80 mls/hr
Acetaminophen [Tylenol] 650 mg PO Q4HPRN PRN
Bisacodyl [Dulcolax] 10 mg RECTAL [id number] PRN
Dextrose 50%-Water [Dextrose 50% Syringe] 12.5 grams IV [id number] PRN
Docusate W/Senna [Senokot-S] 1 tablet PO BIDPRN PRN
Glucagon [GlucaGen] 1 mg IM PRN PRN
Keytruda 1 dose IV Q42D
Loperamide [Imodium] 2 mg PO Q4HPRN PRN
Loratadine [Claritin] 10 mg PO DAILYPRN PRN
Polyethylene Glycol Powder [Miralax] 17 grams PO DAILYPRN PRN
11/23/24 21:36
Activity As Directed
Activity Level: With Assistance
Bedside Glucose Monitoring As Directed
Frequency: AC&HS
Additional Instructions:: Change to q6h if pt on TPN, tube feeding or not eating
Intake/ Output As Directed
Frequency: Per unit guidelines
Vital Signs As Directed
Frequency: Per unit guidelines
Weight As Directed
Frequency: Daily
DX Deep Vein Thrombosis Video Routine
11/24/24 06:48
Complete Blood Count/No Diff IN AM
Comprehensive Metabolic Panel IN AM
Glycohemoglobin (HgbA1c) IN AM
Magnesium Routine
Comment: ADD ON
Phosphorus Routine
Comment: ADD ON
11/24/24 07:30
Insulin Aspart Corrective Mod [Novolog Flexpen-Moderate Resistance] See Protocol SC AC
11/24/24 08:00
Aspirin Low Dose EC [Aspir Low (Enteric Coated)] 81 mg PO DAILY
Dexamethasone [Decadron] 8 mg PO DAILY
Lisinopril [Zestril] 40 mg PO DAILY
11/24/24 18:00
Enoxaparin Sodium [Lovenox] 40 mg SC QPM
Abnormal Lab Results
11/23/24
16:18
WBC 13.3 H 10^3/uL
(4.8-10.8)
RBC 3.63 L 10^6/uL
(4.20-5.40)
Hgb 10.6 L g/dL
(12.0-16.0)
Hct 31.7 L %
(37.0-47.0)
RDW 16.0 H %
(11.5-14.5)
Plt Count 441 H 10^3/uL
(130-400)
Abs Immat Gran (auto) 0.1 H 10^3/uL
(0-0.05)
Absolute Neuts (auto) 12.1 H 10^3/uL
(1.4-6.5)
Absolute Lymphs (auto) 0.7 L 10^3/uL
(1.2-3.4)
Neutrophils % 91.0 H %
(42.2-75.2)
Lymphocytes % 5.5 L %
(20.5-51.1)
Sodium 129 L mmol/L
(135-145)
BUN 30 H mg/dl
(7-17)
Creatinine 0.4 L mg/dL
(0.6-1.0)
Glucose 319 H mg/dl
(70-99)
Phosphorus 1.8 L mg/dl
(2.5-4.5)
Total Protein 5.2 L g/dl
(6.3-8.2)
Albumin 2.6 L g/dl
(3.5-5.0)
11/23/24 16:18
11/23/24 16:18
Vital Signs
Initial and Last Documented VS:
Initial Vital Signs
Pulse BP Pulse Ox
88 133/88 99
11/23/24 13:27 11/23/24 13:27 11/23/24 13:27
Last Documented Vital Signs
Temp Pulse Resp BP Pulse Ox
36.8 C 92 14 165/73 97
11/24/24 23:40 11/24/24 23:40 11/24/24 23:40 11/24/24 23:40 11/24/24 23:40
<Praneeth Ridley MD - Last Filed: 11/23/24 18:42>
Orders/Labs/Results
Orders:
Orders
11/23/24 15:36
C DIFF [C difficile Antigen & Toxins] Urgent
SHAHNAZ Source: Feces/Stool
Specimen Description:
Stool Culture Urgent
SHAHNAZ Source: Feces/Stool
Specimen Description:
11/23/24 15:37
Electrocardiogram (*1) Stat
Reason for Study: Other
Other Reason for Exam: GI Bleed
EKG- Treatment ONCE
IV Insert/Care/Rem.- Treatment PRN
11/23/24 16:18
Type+Screen Urgent
Complete Blood Count/With Diff Urgent
Comprehensive Metabolic Panel Urgent
Ionized Calcium Urgent
Lipase Urgent
Magnesium Urgent
NT-proBNP Urgent
Comment: ADD ON
Phos [Phosphorus] Urgent
11/23/24 16:30
CR Chest - 2 Views Urgent
Comment:
Reason For Exam: edema
11/23/24 16:39
Add On- LAB Urgent
Tests Added?: pth
11/23/24 16:40
0.9% Sodium Chloride 500 ml [Nss] 500 ml IV BOLUS
11/23/24 17:09
ABO2 Urgent
BBK Wristband Number:
Associate notified that ABO2 has been ordered: [id number]
Date: 11/23/24
Time: 16:40
Product Builder ID: [id number]
11/23/24 17:10
Nicotine [Nicoderm Transdermal] 21 mg .ROUTE .STK-MED ONE
11/23/24 17:25
Add On- LAB Urgent
Comments:: tube in lab
Tests Added?: Pro-BNP
11/23/24 18:00
Nicotine [Nicoderm Transdermal] 21 mg TRANSDERM DAILY
11/23/24 19:07
Azithromycin 500 mg/250 ml [Zithromax Infusion] 500 mg in 250 ml IV NOW
11/23/24 19:50
Aztreonam [Azactam] 1,000 mg IV NOW STA
11/23/24 19:53
Admit/Transfer Patient As Directed
Co-Sign Provider:
Level of Care: Inpatient admission
Assign to:: Medical/Surgical
Physician / Group: htay
Diagnosis: acute on chronic dirrhea, dehydration, hyponatremia, weakness
Reason for Hospitalization: acute on chronic dirrhea, dehydration, hyponatremia, weakness
Expected length of stay greater than two midnights?: Yes
ELOS- Estimated Length of Stay in days: 3
I certify the patient meets the requirements for IP care: Yes
Procalcitonin Routine
PCT Algorithmm Indication: Respiratory
11/23/24 19:55
Code Status As Directed
Resuscitation Status: Full Code
11/23/24 20:05
Code Status As Directed
Resuscitation Status: Do not resuscitate
Reached after discussion with pt or family/Healthcare POA: Yes
11/23/24 20:06
DNR Bracelet Application ONCE
11/23/24 21:36
0.9% Sodium Chloride 1000 ml [Nss] 1,000 ml IV 80 mls/hr
Acetaminophen [Tylenol] 650 mg PO Q4HPRN PRN
Bisacodyl [Dulcolax] 10 mg RECTAL [id number] PRN
Dextrose 50%-Water [Dextrose 50% Syringe] 12.5 grams IV [id number] PRN
Docusate W/Senna [Senokot-S] 1 tablet PO BIDPRN PRN
Glucagon [GlucaGen] 1 mg IM PRN PRN
Keytruda 1 dose IV Q42D
Loperamide [Imodium] 2 mg PO Q4HPRN PRN
Loratadine [Claritin] 10 mg PO DAILYPRN PRN
Polyethylene Glycol Powder [Miralax] 17 grams PO DAILYPRN PRN
11/23/24 21:36
Activity As Directed
Activity Level: With Assistance
Bedside Glucose Monitoring As Directed
Frequency: AC&HS
Additional Instructions:: Change to q6h if pt on TPN, tube feeding or not eating
Intake/ Output As Directed
Frequency: Per unit guidelines
Vital Signs As Directed
Frequency: Per unit guidelines
Weight As Directed
Frequency: Daily
DX Deep Vein Thrombosis Video Routine
11/24/24 06:48
Complete Blood Count/No Diff IN AM
Comprehensive Metabolic Panel IN AM
Glycohemoglobin (HgbA1c) IN AM
Magnesium Routine
Comment: ADD ON
Phosphorus Routine
Comment: ADD ON
11/24/24 07:30
Insulin Aspart Corrective Mod [Novolog Flexpen-Moderate Resistance] See Protocol SC AC
11/24/24 08:00
Aspirin Low Dose EC [Aspir Low (Enteric Coated)] 81 mg PO DAILY
Dexamethasone [Decadron] 8 mg PO DAILY
Lisinopril [Zestril] 40 mg PO DAILY
11/24/24 18:00
Enoxaparin Sodium [Lovenox] 40 mg SC QPM
Abnormal Lab Results
11/23/24
16:18
WBC 13.3 H 10^3/uL
(4.8-10.8)
RBC 3.63 L 10^6/uL
(4.20-5.40)
Hgb 10.6 L g/dL
(12.0-16.0)
Hct 31.7 L %
(37.0-47.0)
RDW 16.0 H %
(11.5-14.5)
Plt Count 441 H 10^3/uL
(130-400)
Abs Immat Gran (auto) 0.1 H 10^3/uL
(0-0.05)
Absolute Neuts (auto) 12.1 H 10^3/uL
(1.4-6.5)
Absolute Lymphs (auto) 0.7 L 10^3/uL
(1.2-3.4)
Neutrophils % 91.0 H %
(42.2-75.2)
Lymphocytes % 5.5 L %
(20.5-51.1)
Sodium 129 L mmol/L
(135-145)
BUN 30 H mg/dl
(7-17)
Creatinine 0.4 L mg/dL
(0.6-1.0)
Glucose 319 H mg/dl
(70-99)
Phosphorus 1.8 L mg/dl
(2.5-4.5)
Total Protein 5.2 L g/dl
(6.3-8.2)
Albumin 2.6 L g/dl
(3.5-5.0)
11/23/24 16:18
11/23/24 16:18
Vital Signs
Initial and Last Documented VS:
Initial Vital Signs
Pulse BP Pulse Ox
88 133/88 99
11/23/24 13:27 11/23/24 13:27 11/23/24 13:27
Last Documented Vital Signs
Temp Pulse Resp BP Pulse Ox
36.8 C 92 14 165/73 97
11/24/24 23:40 11/24/24 23:40 11/24/24 23:40 11/24/24 23:40 11/24/24 23:40
<Michelle Lira PA-C - Last Filed: 11/25/24 07:20>
MDM/Problems Addressed
Differential Diagnosis Includes:
dehdyration, diarrhea, electrolyte distrurbance
MDM/Problems Addressed:
74 y/o F with h/o IDDM, htn, esophageal cancer undergoing chemotherapy
here with generalized fatigue and diarrhea the past few days but has had some diarreha the past few weeks
it has significantly increaed int he past few days after iv infusion of pamudronate
she also has had some diarrhea since starting keytruda
pt is at risk for C diff but never had it
the diarrhea is foul smelling and watery
she feels very weak
pt was sent here by oncology
pale
edematoue legs
abdomen nontender
weak
anticipate dmission
ending electolytes and stool
<Michelle Lira PA-C - Last Filed: 11/25/24 07:20>
*Critical Care Note
Total Time (30-74mins, 75-104mins- exclusive of procedures): Not Applicable
ED Attending Note
<Michelle Lira PA-C - Last Filed: 11/25/24 07:20>
-
Portions of this chart may have been created with voice recognition software.� Occasional wrong word or��sound alike� substitutions may have occurred due to the inherent limitations of voice recognition software.
<Praneeth Ridley MD - Last Filed: 11/23/24 18:42>
ED Attending Note
Patient seen and examined by attending physician: Yes
I performed the substantive portion of visit, reviewed & personally made and approve the management plan that is documented in note by myself or FRANKIE.: Yes
ED Attending Note:
Patient presents with general weakness fatigue significant diarrhea over 3 to 4 days. No fever. No chest pain.
On exam patient is generally weak. Lungs with some mild rhonchi in the bases. Heart regular rate and rhythm. Abdomen soft and nontender. Warm and dry. Not focally weak.
Diarrhea significant weakness. Questionable left lower lobe infiltrate. Admission for further care
Discharge Plan
Departure
Patient Disposition: Admit
Date of Disposition: 11/23/24
Time of Disposition: 19:02
Admit to: Med/Surg
Presentation/result/management discussed w/ accepting MD/DO: Hospitalist
Discharge Problem:
Diarrhea, Weakness
Interventions
Interventions:
*General Assessment Last Done: 11/23/24 15:44
*Neglect/Abuse Screening Last Done: 11/23/24 15:44
ED- Fall Risk Assessment Last Done: 11/23/24 15:45
*ED COVID-19 Vaccine History Last Done: 11/23/24 15:44
*Nursing Disposition Last Done: 11/23/24 21:25
LZ-Mgubut-Swxswdlplv Assessment Last Done: 11/23/24 20:00
Discharge Date and Time
Discharge Date/Time: 11/23/24 21:26
[2024-11-23 16:35] LABS: % Basophils 0.1 % (0-2); % Immature Granulocytes 0.5 % (0-0.5); % Lymphocytes 5.5 % (20.5-51.1); % Monocytes 2.9 % (1.7-9.3); Absolute Immature Granulocytes 0.1 10^3/uL (0-0.05); Absolute Lymphocytes 0.7 10^3/uL (1.2-3.4); Absolute Monocytes 0.4 10^3/uL (0.1-0.6); Absolute Neutrophils 12.1 10^3/uL (1.4-6.5); Hematocrit 31.7 % (37.0-47.0); Hemoglobin 10.6 g/dL (12.0-16.0); Mean Corp Hgb Conc. 33.4 g/dL (33.0-37.0); Mean Corpuscular Hgb 29.2 pg (27.0-31.0); Mean Corpuscular Volume 87.3 fL (81.0-99.0); Nucleated Red Blood Cells % 0 %; Platelet Count 441 10^3/uL (130-400); Red Blood Cell Count 3.63 10^6/uL (4.20-5.40); White Blood Cell Count 13.3 10^3/uL (4.8-10.8)
[2024-11-23 16:36] LABS: Ionized Calcium 1.28 mMOL/L (1.15-1.33)
--- NOTE | 2024-11-23 16:50 | EDRN ---
Dr. Ridley in room w/pt at this time.
[2024-11-23 16:53] LABS: ALT (SGPT) 14 U/L (0-35); AST (SGOT) 15 U/L (14-36); Albumin 2.6 g/dl (3.5-5.0); Alkaline Phosphatase 97 U/L (38-126); Blood Urea Nitrogen 30 mg/dl (7-17); Carbon Dioxide 27 mmol/L (22-30); Chloride 98 mmol/L (98-107); Estimated Creatinine Clearance 68 ml/min; Glucose 319 mg/dl (70-99); Lipase 31 U/L (23-300); Magnesium 1.8 mg/dl (1.6-2.3); Phosphorus 1.8 mg/dl (2.5-4.5); Potassium 3.8 mmol/L (3.5-5.1); Sodium 129 mmol/L (135-145); Total Bilirubin 0.4 mg/dl (0.2-1.3); Total Protein 5.2 g/dl (6.3-8.2); eGFR > 60.00
[2024-11-23] MEDS: NSS 500 IV (17:12)
[2024-11-23] MEDS: NICODERM TRANSDERMAL 21 MG TRANSDERM (17:15)
--- NOTE | 2024-11-23 17:26 | EDRN ---
Lab called because green top in lab and said to add on Pro BNP.
[2024-11-23 18:02] LABS: NT-proBNP 131 pg/ml
--- NOTE | 2024-11-23 18:07 | EDRN ---
Pt has not had a stool or BM since arrival. Pt took immodium 1-2 tabs this am.
--- NOTE | 2024-11-23 19:45 | HPS.HSE ---
Family Physician
-
Family Physician: Kathleen Manzano
Chief Complaint
-
diarrhea and weakness
History of Present Illness
HPI
74F PMH significant for esophageal cancer, HTN, HLD, and IDDM seen at ER
- currently undergoing chemotherapy for esophageal CA
- significantly increased non bloody foul smelly watery diarrhea the past few days for 5- 10 times per day
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
- she started having diarrhea following IV Pamidronate
- reports some diarrhea since starting Keytruda
- At risk for C Diff but no prior HX C Diff
- on chemo since May 2024
- stared Decadron 8 mg daily and has been able to keep them down
- PET scan in September shows disease is responding well
ROS
- denies bloody stool, vomiting, abdominal pain
- no fever, chills, chest pain, shortness of breath
Medical History
Past Medical History
Past Medical History: Reports Cancer (esophageal on chemo), HTN, Hypercholesterolemia and IDDM
Past Surgical History: Reports Gynocological (MICHAEL), Tonsilectomy and Other (multiple hernia repairs)
Social History
Tobacco: Smoker (1ppd (almost))
Alcohol: None
Drug: None
Family History
Family History: Not pertinent
Allergies / Home Medications
Allergies reflects when Allergies were last updated in [facility].
Home Medications with original date entered in [facility]
Allergy/Medication List:
Allergies
Allergy/AdvReac Type Severity Reaction Status Date / Time
acetaminophen [From Percocet] Allergy Vomiting Verified 09/15/24 12:18
ciprofloxacin [From Cipro] Allergy Rash Verified 09/15/24 12:18
oxycodone [From Percocet] Allergy Vomiting Verified 09/15/24 12:18
Penicillins Allergy Rash Verified 09/15/24 12:18
Home Medications
fenofibrate nanocrystallized 145 mg tablet 145 mg PO DAILY 06/18/24
hydrochlorothiazide 25 mg tablet 25 mg PO DAILY 06/18/24
insulin glargine 100 unit/mL (3 mL) subcutaneous pen (Lantus Solostar U-100 Insulin) 20 unit SC HS 06/18/24
lidocaine-prilocaine 2.5 %-2.5 % topical cream 1 applic topical DAILYPRN PRN port access 06/18/24
lisinopril 40 mg tablet 40 mg PO DAILY 06/18/24
ondansetron 8 mg disintegrating tablet 8 mg PO Q8HPRN PRN nausea 06/18/24
prochlorperazine maleate 10 mg tablet 10 mg PO Q6HPRN PRN nausea 06/18/24
simvastatin 20 mg tablet 20 mg PO HS 06/18/24
M.V.I. 1 unit IV Q2W 07/07/24
aspirin 81 mg capsule 81 mg PO DAILY 07/07/24
Keytruda 1 unit IV Q6W 07/22/24
fluorouracil 1 unit IV Q2W 07/22/24
leucovorin calcium 1 unit IV Q2W 07/22/24
oxaliplatin 1 unit IV Q2W 07/22/24
loratadine 10 mg tablet (Claritin) 10 mg PO DAILYPRN PRN allergy symptoms 09/15/24
omeprazole 20 mg capsule,delayed release 20 mg PO DAILY 09/15/24
Review of Systems
-
Constitutional: Reports No Symptoms
EENT: Reports No Symptoms
Respiratory: Reports No Symptoms
Cardiac: Reports No Symptoms
Abdomen/GI: Reports Diarrhea; Denies Bloody Stools
: Reports No Symptoms
Musculoskeletal: Reports No Symptoms
Skin: Reports No Symptoms
Neurological: Reports No Symptoms
Endocrine: Reports No Symptoms
Hematologic/Lymphatic: Reports No Symptoms
Psych: Reports No Symptoms
Physical Exam
Vital Signs
Vital Signs
Pulse Resp BP Pulse Ox
76 16 145/58 98
11/23/24 18:10 11/23/24 18:10 11/23/24 18:10 11/23/24 18:10
Physical Exam
General: Well Developed, Well Nourished and No Apparent Distress
HEENT: NormoCephalic, Anicteric and Moist mucous membranes
Respiratory: Clear
Cardiac: S1/S2 and Regular Rhythm
GI: Soft, Non Tender and Non Distended
Musculoskeletal: No Cyanosis, Edema, Left Lower Extremity (mild) and Edema, Right Lower Extremity (mild)
Skin: Warm and Dry
Neuro: AO x 3 and No Motor Deficits
Psych: Calm
Laboratory Results
-
11/23/24 16:18
11/23/24 16:18
Laboratory Results
Total Bilirubin 0.4 mg/dl (0.2-1.3) 11/23/24 16:18
AST 15 U/L (14-36) 11/23/24 16:18
ALT 14 U/L (0-35) 11/23/24 16:18
Alkaline Phosphatase 97 U/L (38-126) 11/23/24 16:18
Lipase 31 U/L (23-300) 11/23/24 16:18
Data Reviewed
-
Lab Data: Labs Reviewed by me
Old Records: Reviewed
Impression/Plan
-
Vital Signs
Pulse Resp BP Pulse Ox
76 16 145/58 98
11/23/24 18:10 11/23/24 18:10 11/23/24 18:10 11/23/24 18:10
Laboratory Tests
10/20/24 11/19/24 11/23/24
09:58 13:20 16:18
WBC 13.3 H
Hgb 12.2 10.6 L
Plt Count 318 441 H
Sodium 133 L 129 L
BUN 37 H 30 H
Creatinine 0.4 L 0.4 L
eGFR > 60.00 > 60.00
Calcium 11.7 H 9.0
Albumin 2.6 L
PTH Intact Pending
CXR
Patchy parenchymal opacity within the left lower lobe, increasing from previous examinations. This is suspicious for pneumonia, although atelectasis is also possible.
Last hospitalist admission:
Date of Admission: 09/15/24 - Date of Discharge: 09/16/24
Principal Discharge diagnosis : Avulsion fracture of greater trochanter (Left)
Chronic Discharge diagnosis : Esophageal cancer, IDDM, smoker, hypertension, hyperlipidemia
ASSESSMENT & PLAN
Frequent non bloody watery diarrhea DDX: infective vs Chemo related
Asso. hyponatremia, hypochloremic, dehydration
Associated with weakness
No recent ABx exposure
- Hold HCTZ
- stool for Cx, stool C Diff
- IV NS @ 80/H
- f/u BMP daily
- c/w PO Decadron
Esophageal CA
Responding to chemo
- cont. Keytruda
- cont PO Decadron
Normal Calcium
S/P IV Pamidronate daily for 4 days
HX familial hypercalcuria hypercalcemia
- Observe Ca
LLL patchy parenchymal opacity increasing from previous examinations.
PNA vs Atx
- denies fever, cough,
- check PCT - til them hod of further ABx
Essential HTN
- cont Lisinopril
- f/u RFTs
Hyperglycemia due to Decadron
IDDM
- cont Lantus 20 u QHS
- moderate SSI
Smoker, almost 1ppd
- nicotine patch 14 mg
DVT proph-Lovenox
DNR confirmed by patient in the presence of sons
IP MS
[2024-11-23] MEDS: ZITHROMAX INFUSION 250 IV (19:50)
[2024-11-23] MEDS: AZACTAM 1000 MG IV (21:08)
[2024-11-23] MEDS: NSS 1000 IV (22:02)
[2024-11-23 22:26] LABS: Glucose - Point of Care 218 mg/dl (70-99)
[2024-11-24 05:49] VITALS: BMI 20.8
[2024-11-24 07:00] VITALS: BP 151/75
[2024-11-24 07:11] LABS: Hematocrit 30.8 % (37.0-47.0); Hemoglobin 10.5 g/dL (12.0-16.0); Mean Corp Hgb Conc. 34.1 g/dL (33.0-37.0); Mean Corpuscular Hgb 29.6 pg (27.0-31.0); Mean Corpuscular Volume 86.8 fL (81.0-99.0); Mean Platelet Volume 10.3 fL (7.4-10.4); Platelet Count 439 10^3/uL (130-400); Red Blood Cell Count 3.55 10^6/uL (4.20-5.40); Red Cell Dist. Width 15.6 % (11.5-14.5); White Blood Cell Count 17.6 10^3/uL (4.8-10.8)
[2024-11-24 07:40] LABS: ALT (SGPT) 12 U/L (0-35); AST (SGOT) 16 U/L (14-36); Albumin 2.3 g/dl (3.5-5.0); Alkaline Phosphatase 94 U/L (38-126); Blood Urea Nitrogen 19 mg/dl (7-17); Calcium 8.3 mg/dl (8.4-10.2); Carbon Dioxide 26 mmol/L (22-30); Chloride 101 mmol/L (98-107); Estimated Creatinine Clearance 68 ml/min; Glucose 120 mg/dl (70-99); Potassium 3.3 mmol/L (3.5-5.1); Sodium 131 mmol/L (135-145); Total Bilirubin 0.7 mg/dl (0.2-1.3); eGFR > 60.00
[2024-11-24 08:23] LABS: Intact PTH 138.1 pg/ml (13.6-85.8)
[2024-11-24 08:43] LABS: Glucose - Point of Care 141 mg/dl (70-99)
[2024-11-24] MEDS: NOVOLOG FLEXPEN-MODERATE RESISTANCE SC (09:17)
[2024-11-24 09:22] LABS: Glycohemoglobin (HgbA1c) 7.5 % (4.0-5.6)
--- NOTE | 2024-11-24 09:27 | W.PN.HOSP.TC ---
Today's Communication/Plan
-
Check stool studies
Replete electrolytes
Advance diet as tolerated
Possible discharge later today
Assessment / Plan
Assessment / Plan
Gen-AAOx3, NAD
HEENT-NC, AT, anicteric, clear oral mm
Neck-supple
CV-reg, no M, +S1/S2
Lungs-clear B/L
Abd-soft, mild tenderness without guarding, nondistended
Ext-no edema
Musculoskeletal-no cyanosis, clubbing
Skin-warm and dry
Neuro-grossly non-focal
Psych-calm, cooperative
Acute gastroenteritis -presentation with nausea, vomiting, diarrhea. Suspect infectious etiology. Medication side effect less likely but possible.
Check stool studies if she has diarrhea again. Continue supportive care.
DM2 with hyperglycemia -hemoglobin A1c 7.5%. Not on medications at home. Recommend follow-up with PCP. Steroid-induced hyperglycemia contributing.
Hyponatremia -suspect hypovolemic. Improving.
Hypokalemia -will replete. Check magnesium.
Hypophosphatemia -replete IV, recheck today.
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
Essential hypertension -on lisinopril.
Normocytic anemia -follow-up as outpatient.
esophageal cancer -on chemotherapy.
DNR
Dispo -potential discharge later today if stable. Discussed with patient and nurse.
Anticipated Discharge: Today
Subjective/Interval History
-
Date of Service: November 24, 2024
Patient seen and examined. Appetite improving. Complaining of mild nausea. States she has not had any diarrhea in the hospital.
Objective Data
-
Labs:
Laboratory Results
11/24/24
06:48
WBC 17.6 H
Hgb 10.5 L
Hct 30.8 L
Plt Count 439 H
Sodium 131 L
Potassium 3.3 L
Chloride 101
Carbon Dioxide 26
BUN 19 H
Creatinine 0.3 L
Glucose 120 H
Calcium 8.3 L
Total Bilirubin 0.7
AST 16
ALT 12
Alkaline Phosphatase 94
Vital Signs:
Vital Signs
Temp Pulse Resp BP Pulse Ox
97.6 F 80 14 150/68 97
11/23/24 23:30 11/23/24 23:30 11/23/24 23:30 11/23/24 23:30 11/23/24 23:30
I&O
11/23/24 11/24/24 11/25/24
06:59 06:59 06:59
Intake Total 1440 / 1440
Output Total 150 / 150
Balance 1290 / 1290
Review of Systems
-
History Source: Patient
All other systems: Reviewed and negative
--- NOTE | 2024-11-24 09:39 | W.DS.TRANS ---
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
-
Discharge Instructions:
Discharge Diagnosis/Procedures Acute gastroenteritis, electrolyte abnormalities
Diet Low Residue
Activity As tolerated
Driving Restrictions As prior to admission
Bathing Restrictions None
Instructions:
Stand-Alone Forms:
Changes to Home Medications: No
Discharge Medications:
DC Medications w/original date entered in [employer]
fenofibrate nanocrystallized 145 mg tablet 145 mg PO DAILY High Cholesterol 06/18/24
lisinopril 40 mg tablet 40 mg PO DAILY Blood Pressure 06/18/24
aspirin 81 mg capsule 81 mg PO DAILY Blood Clot Prevention/Tx 07/07/24
Keytruda 1 dose IV Q6W Cancer 07/22/24
loratadine 10 mg tablet (Claritin) 10 mg PO DAILYPRN PRN allergy symptoms 09/15/24
omeprazole 20 mg capsule,delayed release 20 mg PO BID Gastrointestinal Issue 09/15/24
dexamethasone 4 mg tablet 8 mg PO DAILY Anti-Inflammatory 11/23/24
loperamide 2 mg capsule 2 mg PO Q4HPRN PRN diarrhea 11/23/24
potassium chloride 20 mEq tablet,extended release(part/cryst) 20 meq PO BID #10 tabs 11/24/24
Home Medication Changes
Pending Results: No
[2024-11-24 10:01] LABS: Magnesium 1.7 mg/dl (1.6-2.3); Phosphorus 1.5 mg/dl (2.5-4.5)
[2024-11-24] MEDS: NSS IV (10:38)
[2024-11-24] MEDS: SODIUM PHOSPHATE 255 MEQ IV (10:42)
[2024-11-24] MEDS: ZESTRIL 40 MG PO (10:46)
[2024-11-24] MEDS: KCL 40 MEQ PO (10:47)
[2024-11-24] MEDS: ASPIR LOW (ENTERIC COATED) 81 MG PO (10:47)
[2024-11-24] MEDS: NICODERM TRANSDERMAL 21 MG TRANSDERM (10:48)
[2024-11-24] MEDS: DECADRON 8 MG PO (10:48)
--- NOTE | 2024-11-24 11:01 | CM ---
market manager reviewed patient's chart and met with patient and patient states she lives in a 1st floor apartment, patient is independent with adl's and uses a walker with ambulation, patient drives occasionally, patient was recently set up with [facility]
from oncology office.
PCP: Kathleen Manzano
Pharmacy: [facility]
Plan; Home with [facility] when stable, possible discharge today.
[2024-11-24 11:47] LABS: Glucose - Point of Care 238 mg/dl (70-99)
--- NOTE | 2024-11-24 12:08 | VNURNOTE ---
Towel Cabinet Repairer met with patient to discuss [facility] nurse/therapy, visits, schedule and homebound status. Patient is agreeable and understands that visits at home will be 2-3 x per week to assess and teach medical management.
[facility] contact information provided. Patient is aware that [facility] will contact them for start of care in 1-2 days after discharge from .
[facility] referral completed in [facility]
[2024-11-24] MEDS: NOVOLOG FLEXPEN-MODERATE RESISTANCE 3 UNITS SC (13:55)
[2024-11-24 15:00] VITALS: BP 148/70
[2024-11-24] MEDS: LR 1000 IV (16:43)
[2024-11-24] MEDS: ZOFRAN 4 MG IV (16:44)
[2024-11-24 17:03] LABS: Glucose - Point of Care 159 mg/dl (70-99)
[2024-11-24] MEDS: NOVOLOG FLEXPEN-MODERATE RESISTANCE 1 UNITS SC (17:08)
[2024-11-24] MEDS: LOVENOX 40 MG SC (17:15)
[2024-11-24] MEDS: KCL 20 MEQ PO (20:42)
[2024-11-24 20:47] LABS: Glucose - Point of Care 191 mg/dl (70-99)
[2024-11-24 23:40] VITALS: BP 165/73
--- NOTE | 2024-11-25 02:45 | DOWNTIME ---
There was a [employer] Client Assistant District Attorney Downtime on 11/25/2024 from 0100 to 11/25/2023 at 0235 . Downtime documentation of patient's care, including medication administrations, has been reconciled in the electronic record per guidelines. Refer to the
patient's paper chart under the miscellaneous tab to see printed paper medication records and downtime forms.
[2024-11-25 04:16] VITALS: BMI 22.0
[2024-11-25 06:21] LABS: % Basophils 0.1 % (0-2); % Immature Granulocytes 0.4 % (0-0.5); % Lymphocytes 8.1 % (20.5-51.1); % Monocytes 3.3 % (1.7-9.3); % Neutrophils 88.1 % (42.2-75.2); Absolute Immature Granulocytes 0.1 10^3/uL (0-0.05); Absolute Lymphocytes 1.2 10^3/uL (1.2-3.4); Absolute Monocytes 0.5 10^3/uL (0.1-0.6); Hematocrit 31.5 % (37.0-47.0); Hemoglobin 10.7 g/dL (12.0-16.0); Mean Corpuscular Hgb 29.6 pg (27.0-31.0); Mean Platelet Volume 10.2 fL (7.4-10.4); Nucleated Red Blood Cells % 0 %; Platelet Count 440 10^3/uL (130-400); Red Blood Cell Count 3.62 10^6/uL (4.20-5.40); Red Cell Dist. Width 15.9 % (11.5-14.5); White Blood Cell Count 14.8 10^3/uL (4.8-10.8)
[2024-11-25 07:00] VITALS: BP 144/65
[2024-11-25 07:12] LABS: ALT (SGPT) 11 U/L (0-35); AST (SGOT) 15 U/L (14-36); Albumin 2.3 g/dl (3.5-5.0); Alkaline Phosphatase 88 U/L (38-126); Blood Urea Nitrogen 15 mg/dl (7-17); Calcium 8.1 mg/dl (8.4-10.2); Carbon Dioxide 23 mmol/L (22-30); Chloride 102 mmol/L (98-107); Estimated Creatinine Clearance 68 ml/min; Glucose 128 mg/dl (70-99); Magnesium 1.6 mg/dl (1.6-2.3); Potassium 4.3 mmol/L (3.5-5.1); Sodium 130 mmol/L (135-145); Total Bilirubin 0.8 mg/dl (0.2-1.3); Total Protein 4.9 g/dl (6.3-8.2); eGFR > 60.00
[2024-11-25 07:40] LABS: Glucose - Point of Care 125 mg/dl (70-99)
[2024-11-25] MEDS: NOVOLOG FLEXPEN-MODERATE RESISTANCE SC ×2 (07:52→11:54)
[2024-11-25] MEDS: NICODERM TRANSDERMAL 21 MG TRANSDERM (09:09)
[2024-11-25] MEDS: ASPIR LOW (ENTERIC COATED) 81 MG PO (09:10)
[2024-11-25] MEDS: KCL 20 MEQ PO (09:10)
[2024-11-25] MEDS: ZESTRIL 40 MG PO (09:10)
[2024-11-25] MEDS: DECADRON 8 MG PO (09:10)
--- NOTE | 2024-11-25 09:30 | WOUNDNOTE ---
WON RN note: Patient admitted with Diarrhea and weakness.
See H&P for complete history.
PMH: IDDM, HTN,smoker, esophageal cancer s/p treatment.
Wound Location and type/assessment: Patient admitted with: Incontinent associated skin damage on sacrum vs stage 2 PI. 3 Shallow ulcers, base with fibrin, scant drainage. L ischium with old healing PI suspect was a stage 2 PI now dry scab at site.
Patient very thin, suspect due to diarrhea and weakness, patient unable to properly clean self causing skin damage. Heels blanchable red, patient turned easily.
Appetite: Fair.
Pressure redistribution devices in place: On Air overlay with adequate inflation. Air chair cushion placed in rm for when sitting, can use to offload heels when in bed. Patient can take cushion upon discharge.
Plan: Silicone foams applied to L ischium and sacrum. Barrier cream in use for perineum.
Will confirm orders with hospitalist and updated nurse. Updated care plan and will follow as needed.
Note to case management of equipment requested for discharge: VN
Recommend follow up at wound care center upon discharge.
--- NOTE | 2024-11-25 09:58 | CM ---
Chart reviewed and patient has been cleared for discharge to home today, with [facility].
Plan; Home with [facility], IMM completed and placed on chart.
[2024-11-25 10:27] VITALS: BP 158/79; BP 160/95; PULSE 79; O2SAT 98
[2024-11-25 10:31] VITALS: BP 158/79; BP 164/82; PULSE 78; O2SAT 95
--- NOTE | 2024-11-25 11:04 | W.PN.HOSP.TC ---
Today's Communication/Plan
-
Discharge
Assessment / Plan
Assessment / Plan
Gen-AAOx3, NAD
HEENT-NC, AT, anicteric, clear oral mm
Neck-supple
CV-reg, no M, +S1/S2
Lungs-clear B/L
Abd-soft, nontender, nondistended
Ext-no edema
Musculoskeletal-no cyanosis, clubbing
Skin-warm and dry
Neuro-grossly non-focal
Psych-calm, cooperative
Acute gastroenteritis -presentation with nausea, vomiting, diarrhea. Suspect infectious etiology. Medication side effect less likely but possible. Gastroenteritis resolved.
Has not had any diarrhea, therefore unable to test stool.
Tolerating solid food.
DM2 with hyperglycemia -hemoglobin A1c 7.5%. Not on medications at home. Recommend follow-up with PCP. Steroid-induced hyperglycemia contributing.
Hyponatremia -suspect hypovolemic. Improving.
Hypokalemia -resolved. Magnesium normal.
Hypophosphatemia -phosphate 2.0 today, give another dose of IV sodium phosphate, discharge on oral repletion. Suspect low phosphate level related to pamidronate dose.
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
Essential hypertension -on lisinopril.
Normocytic anemia -follow-up as outpatient.
esophageal cancer -on chemotherapy.
DNR
Dispo -SNF recommended by physical therapy but patient declined and wants to go home with home PT. I updated patient's son Dominick on the phone.
[place] text sent to patient's oncologist Dr. Mas regarding the discharge plans.
35 minutes spent in discharge process.
Anticipated Discharge: Today
Subjective/Interval History
-
Date of Service: November 25, 2024
Patient seen and examined. Feeling better. Eager to go home today. Tolerating diet. Denies diarrhea.
Objective Data
-
Labs:
Laboratory Results
11/25/24 11/25/24
06:01 06:02
WBC 14.8 H
Hgb 10.7 L
Hct 31.5 L
Plt Count 440 H
Sodium 130 L
Potassium 4.3 D
Chloride 102
Carbon Dioxide 23
BUN 15
Creatinine 0.4 L
Glucose 128 H
Calcium 8.1 L
Total Bilirubin 0.8
AST 15
ALT 11
Alkaline Phosphatase 88
Vital Signs:
Vital Signs
Temp Pulse Resp BP Pulse Ox
98.7 F 79 19 144/65 95
11/25/24 07:00 11/25/24 07:00 11/25/24 07:00 11/25/24 07:00 11/25/24 07:00
I&O
11/24/24 11/25/24 11/26/24
06:59 06:59 06:59
Intake Total 1440 / 1440 1320 / 1320
Output Total 150 / 150 400 / 400
Balance 1290 / 1290 920 / 920
Review of Systems
-
History Source: Patient
All other systems: Reviewed and negative
--- NOTE | 2024-11-25 11:12 | W.DS.TRANS ---
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
-
Discharge Instructions:
Discharge Diagnosis/Procedures Acute gastroenteritis, electrolyte abnormalities
Diet Low Residue
Activity As tolerated
Driving Restrictions As prior to admission
Bathing Restrictions None
Blood Work CMP and phosphate and magnesium level on Saturday
with your primary care doctor
Other Services PT
Instructions:
Stand-Alone Forms:
Changes to Home Medications: No
Discharge Medications:
DC Medications w/original date entered in [facility]
fenofibrate nanocrystallized 145 mg tablet 145 mg PO DAILY High Cholesterol 06/18/24
lisinopril 40 mg tablet 40 mg PO DAILY Blood Pressure 06/18/24
aspirin 81 mg capsule 81 mg PO DAILY Blood Clot Prevention/Tx 07/07/24
Keytruda 1 dose IV Q6W Cancer 07/22/24
loratadine 10 mg tablet (Claritin) 10 mg PO DAILYPRN PRN allergy symptoms 09/15/24
omeprazole 20 mg capsule,delayed release 20 mg PO BID Gastrointestinal Issue 09/15/24
dexamethasone 4 mg tablet 8 mg PO DAILY Anti-Inflammatory 11/23/24
loperamide 2 mg capsule 2 mg PO Q4HPRN PRN diarrhea 11/23/24
potassium, sodium phosphates 280 mg-160 mg-250 mg oral powder packet (Phos-NaK) 1 packet PO [facility] #20 ea 11/25/24
Home Medication Changes
Pending Results: No
[2024-11-25 11:48] LABS: Glucose - Point of Care 132 mg/dl (70-99)
[2024-11-25] MEDS: SODIUM PHOSPHATE 255 MEQ IV (12:14)
[2024-11-25] MEDS: NEUTRA-PHOS POWDER PACKET 250 MG PO (12:15)
[2024-11-25 14:38] VITALS: BP 145/69
== END 2024-11-25 16:39 | disposition home health service (06) | DRG 392 ==
LOC: 4 WEST ACU 20:24
PROVIDERS: Physician Assistant; ADMITTING PHYSICIAN Internal Medicine; ATTENDING PHYSICIAN Hospitalist; EMERGENCY PHYSICIAN Emergency Medicine; FAMILY PHYSICIAN Family Medicine
DX: A09 Infectious gastroenteritis and colitis, unspecified (principal); C15.9 Malignant neoplasm of esophagus, unspecified; E87.1 Hypo-osmolality and hyponatremia; E78.00 Pure hypercholesterolemia, unspecified; F17.210 Nicotine dependence, cigarettes, uncomplicated; I10 Essential (primary) hypertension; E11.65 Type 2 diabetes mellitus with hyperglycemia; Z79.4 Long term (current) use of insulin; Z66 Do not resuscitate; E87.6 Hypokalemia; E83.39 Other disorders of phosphorus metabolism; E11.8 Type 2 diabetes mellitus with unspecified complications; Z79.899 Other long term (current) drug therapy
CPT/HCPCS: 71046; 80053; 82330; 82962; 83036; 83690; 83735; 83880; 83970; 84100; 84145; 85025; 85027; 86850; 86900; 86901; 93005; 96361; 96365; 97163; 97167; 99285

== ENCOUNTER 2024-11-26 16:50 | Inpatient (IN) | payer OTHER, SELFPAY ==
[2024-11-26] VITALS (20 sets, daily range): BP systolic 135–165; BP diastolic 55–82; BMI 22.2; BMI 20.7
--- NOTE | 2024-11-26 13:35 | ED.GENMED ---
History of Present Illness
General
Chief Complaint: Weakness
Source: patient
Exam Limitations: none
Time Seen by Provider: 11/26/24 13:35
Nursing documentation reviewed up to this point in time: agreed with
History of Present Illness
History of Present Illness:
Patient is a 74-year-old female with past medical history of esophageal cancer, gastroenteritis diabetes hyponatremia hypokalemia hypophosphatemia presents back to the ER for evaluation. Patient was just admitted November 23 and discharged
yesterday. She reports that she was recommended to go to a rehab but wanted to go home. Last night she was very weak and around 5:30 PM was on the toilet and could not get up got herself to the floor but was on the floor till 11 PM until her son
was able to assist her. She went to bed however patient reports she got up this morning felt weak ;tried to sit on the toilet and then could not get up because of weakness and called her son. Patient is no longer on chemotherapy she is on
Keytruda.
Her complaint is weakness. She also reports she has had several episodes of diarrhea since going home. She was initially admitted for nausea vomiting diarrhea.
She denies any fever chills chest pain.
Past History
Past History
ED Past Medical History: Cancer (Esophageal CA), HTN, Hypercholesterolemia and IDDM
Social History
Tobacco: Non-smoker
Alcohol: None
Review of Systems
Review of Systems
Allergies reviewed?: Yes
All Other Systems: ROS reviewed and negative except as documented in HPI and ROS
Constitutional: Reports fatigue; Denies fever or chills
EENT: Reports no symptoms
Respiratory: Reports no symptoms
Cardiac: Reports no symptoms
ABD/GI: Reports diarrhea; Denies abdominal pain, nausea or vomiting
Musculoskeletal: Reports no symptoms
Skin: Reports no symptoms
Psychiatric: Reports no symptoms
Phy Exam
General Physical Exam
General Presentation: no apparent distress
General age: appears stated age
General Skin: warm and dry
General Habitus: elderly
General Mental: alert
General Hydration: dry mucous membranes
Cardiovascular Exam
Cardiovascular Exam: regular rate/rhythm, no murmur and normal peripheral pulses
Pulmonary Exam
Pulmonary Exam: lungs clear and no respiratory distress
Gastrointestinal Exam
Gastrointestinal Exam: non tender and soft
Neurological Exam
Neurological Exam: alert and oriented x3
Course
Orders/Labs/Results
Orders:
Orders
11/26/24 13:38
Complete Blood Count/With Diff Urgent
Comprehensive Metabolic Panel Urgent
Creatine Phosphokinase Urgent
Magnesium Urgent
Comment: ADD ON
Phosphorus Urgent
Comment: ADD ON
11/26/24 13:47
Add On- LAB Urgent
Tests Added?: cpk
11/26/24 14:26
0.9% Sodium Chloride 1000 ml [Nss] 1,000 ml IV BOLUS
11/26/24 Dinner
1800 calorie (15 carb) Diabetic
At Your Request: Full Participation
11/26/24 15:10
Nicotine [Nicoderm Transdermal] 14 mg .ROUTE .STK-MED ONE
11/26/24 16:30
Admit/Transfer Patient As Directed
Co-Sign Provider:
Level of Care: Inpatient admission
Assign to:: Medical/Surgical
Physician / Group: Renée
Diagnosis: Weakness, ambulatory dysfunction
Reason for Hospitalization: PT consult
Expected length of stay greater than two midnights?: Yes
ELOS- Estimated Length of Stay in days: 2
I certify the patient meets the requirements for IP care: Yes
11/26/24 16:32
PRN Pain Medication Management As Directed
May give lesser potent ordered pain med per pt: Yes
preference::
Protocol:: Medication orders for pain may be administered in a
manner that supports deferring to patient preference
when the pt is:
- Requesting an ordered lesser potent pain medication.
Least to most potent pain medications are defined
as: acetaminophen < NSAID < tramadol < opioids
(morphine, oxycodone, hydromorphone).
- Requesting a lesser dose of the same medication IF
ORDERED.
- Requesting a less intrusive route of administration
if both routes are prescribed by the provider (PO <
IV).
11/26/24 16:38
Add On- LAB Routine
Tests Added?: phosphate, magnesium
11/26/24 16:39
Code Status As Directed
Resuscitation Status: Do not resuscitate
Reached after discussion with pt or family/Healthcare POA: Yes
DNR Bracelet Application ONCE
11/26/24 17:58
Acetaminophen [Tylenol] 500 mg PO Q6HPRN PRN
Dextrose 50%-Water [Dextrose 50% Syringe] 12.5 grams IV [id number] PRN
Glucagon [GlucaGen] 1 mg IM PRN PRN
Ondansetron Injectable [Zofran] 4 mg IV Q6HPRN PRN
11/26/24 17:58
Activity As Directed
Activity Level: Ambulate
Bedside Glucose Monitoring As Directed
Frequency: AC&HS
Additional Instructions:: Change to q6h if pt on TPN, tube feeding or not eating
Ot Eval And Treat Routine
Pt Eval And Treat Routine
Activity Level: Ambulate
DX Deep Vein Thrombosis Video Routine
11/26/24 18:00
Enoxaparin Sodium [Lovenox] 30 mg SC QPM
Sodium/Potassium Phosphate Mix [Neutra-Phos Powder Packet] 250 mg PO PCHS
11/26/24 18:17
Loperamide [Imodium] 4 mg PO DAILYPRN PRN
11/27/24 07:30
Insulin Aspart Corrective Low [Novolog Flexpen-Low Resistance] See Protocol SC AC
11/27/24 08:00
Aspirin Low Dose EC [Aspir Low (Enteric Coated)] 81 mg PO DAILY
Dexamethasone [Decadron] 8 mg PO DAILY
Fenofibrate 145 [Tricor] 145 mg PO DAILY
Lisinopril [Zestril] 40 mg PO DAILY
Loratadine [Claritin] 10 mg PO DAILY
Multivitamin [Theragran] 1 tablet PO DAILY
Nicotine [Nicoderm Transdermal] 14 mg TRANSDERM DAILY
Pantoprazole [Protonix] 40 mg PO DAILY
Abnormal Lab Results
11/26/24
13:38
WBC 16.7 H 10^3/uL
(4.8-10.8)
RBC 3.50 L 10^6/uL
(4.20-5.40)
Hgb 10.2 L g/dL
(12.0-16.0)
Hct 30.5 L %
(37.0-47.0)
RDW 16.1 H %
(11.5-14.5)
Plt Count 440 H 10^3/uL
(130-400)
Abs Immat Gran (auto) 0.1 H 10^3/uL
(0-0.05)
Absolute Neuts (auto) 15.9 H 10^3/uL
(1.4-6.5)
Absolute Lymphs (auto) 0.5 L 10^3/uL
(1.2-3.4)
Neutrophils % 95.1 H %
(42.2-75.2)
Lymphocytes % 3.2 L %
(20.5-51.1)
Monocytes % 1.2 L %
(1.7-9.3)
Sodium 130 L mmol/L
(135-145)
BUN 20 H mg/dl
(7-17)
Creatinine 0.4 L mg/dL
(0.6-1.0)
Glucose 299 H mg/dl
(70-99)
Calcium 7.9 L mg/dl
(8.4-10.2)
Phosphorus 1.7 L mg/dl
(2.5-4.5)
Creatine Kinase < 20 L U/L
(30-135)
Total Protein 5.0 L g/dl
(6.3-8.2)
Albumin 2.5 L g/dl
(3.5-5.0)
11/26/24 13:38
11/26/24 13:38
Vital Signs
Initial and Last Documented VS:
Initial Vital Signs
Temp Pulse Resp BP Pulse Ox
98.7 F 82 22 156/81 98
11/26/24 13:04 11/26/24 13:04 11/26/24 13:04 11/26/24 13:04 11/26/24 13:04
Last Documented Vital Signs
Temp Pulse Resp BP Pulse Ox
98.6 F 72 20 154/73 99
11/26/24 18:06 11/26/24 18:06 11/26/24 18:06 11/26/24 18:06 11/26/24 18:40
MDM/Problems Addressed
MDM/Problems Addressed:
As documented patient is a 7-year-old female who was just discharged yesterday for gastroenteritis. She does report that they wanted her to go to rehab but she wanted to go home. She presents to the ER feeling very weak. As documented above she
was unable to get herself off the toilet last night was on the floor for several hours and then her son assisted her off of the floor however today again she was too weak to get up herself off the toilet.
She complains of fatigue. She has been having diarrhea but denies vomiting. She is a cancer patient and is on Keytruda.
She denies any blood in her stools. She denies any fevers white count is elevated 16,000 and was elevated at 14.8 on discharge; hemoglobin is at baseline 10.2; blood sugar was elevated again at 299 she does not take insulin she was given fluids
here in the ER. Calcium was low at 7.9 it was 8.1 on discharge. She does report she has had diarrhea but has had no episodes here in the ER.
CPK was done since patient was on the floor and negative.
Will check urine however patient will require observation. She will need to be likely placed however case discussed with case management and they are not able to place her today.
Chronic conditions affecting care:
Esophageal cancer
*Critical Care Note
Total Time (30-74mins, 75-104mins- exclusive of procedures): Not Applicable
ED Attending Note
-
Portions of this chart may have been created with voice recognition software.� Occasional wrong word or��sound alike� substitutions may have occurred due to the inherent limitations of voice recognition software.
Discharge Plan
Departure
Patient Disposition: Admit
Date of Disposition: 11/26/24
Time of Disposition: 15:55
Admit to: Med/Surg
Admit to doctor: weakness
Presentation/result/management discussed w/ accepting MD/DO: Hospitalist
Patient with high blood pressure during this ER visit?: Yes
Condition: Fair
Covid-19: Not Applicable
Discharge Problem:
Weakness, Acute hyperglycemia
Interventions
Interventions:
*Risk Screen - Suicide Last Done: 11/26/24 13:04
*General Assessment Last Done: 11/26/24 13:04
*Neglect/Abuse Screening Last Done: 11/26/24 13:04
*ED COVID-19 Vaccine History Last Done: 11/26/24 17:30
*Nursing Disposition Last Done: 11/26/24 18:20
ED- Cardiac Assessment Last Done: 11/26/24 14:14
ED- Neurological Assessment Last Done: 11/26/24 14:14
ED- Pulmonary Assessment Last Done: 11/26/24 14:14
Discharge Date and Time
Discharge Date/Time: 11/26/24 18:22
[2024-11-26 13:53] LABS: % Basophils 0.1 % (0-2); % Immature Granulocytes 0.4 % (0-0.5); % Lymphocytes 3.2 % (20.5-51.1); % Monocytes 1.2 % (1.7-9.3); % Neutrophils 95.1 % (42.2-75.2); Absolute Immature Granulocytes 0.1 10^3/uL (0-0.05); Absolute Lymphocytes 0.5 10^3/uL (1.2-3.4); Absolute Monocytes 0.2 10^3/uL (0.1-0.6); Absolute Neutrophils 15.9 10^3/uL (1.4-6.5); Hematocrit 30.5 % (37.0-47.0); Hemoglobin 10.2 g/dL (12.0-16.0); Mean Corp Hgb Conc. 33.4 g/dL (33.0-37.0); Mean Corpuscular Hgb 29.1 pg (27.0-31.0); Mean Corpuscular Volume 87.1 fL (81.0-99.0); Nucleated Red Blood Cells % 0 %; Platelet Count 440 10^3/uL (130-400); Red Cell Dist. Width 16.1 % (11.5-14.5); White Blood Cell Count 16.7 10^3/uL (4.8-10.8)
[2024-11-26 14:07] LABS: ALT (SGPT) 16 U/L (0-35); AST (SGOT) 18 U/L (14-36); Albumin 2.5 g/dl (3.5-5.0); Alkaline Phosphatase 96 U/L (38-126); Blood Urea Nitrogen 20 mg/dl (7-17); Calcium 7.9 mg/dl (8.4-10.2); Carbon Dioxide 22 mmol/L (22-30); Chloride 102 mmol/L (98-107); Glucose 299 mg/dl (70-99); Potassium 3.9 mmol/L (3.5-5.1); Sodium 130 mmol/L (135-145); Total Bilirubin 0.6 mg/dl (0.2-1.3); eGFR > 60.00
[2024-11-26 14:39] LABS: Creatine Phosphokinase < 20 U/L (30-135)
[2024-11-26] MEDS: NSS 1000 IV (15:01)
[2024-11-26] MEDS: NICODERM TRANSDERMAL 14 MG TRANSDERM (15:17)
--- NOTE | 2024-11-26 16:42 | HPS.HSE ---
Family Physician
-
Family Physician: Kathleen Manzano
Chief Complaint
-
Weakness, ambulatory dysfunction
History of Present Illness
74-year-old female recently hospitalized for acute gastroenteritis and discharged November 25 to home. During that hospitalization she declined going to rehab.
Now she returns to the emergency room with ongoing weakness and inability to care for herself. She is requesting rehab placement. Denies falling.
Did have mild diarrhea this morning that improved with Imodium.
Medical History
Past Medical History
Past Medical History: Reports Other
Additional Past Medical History:
Esophageal cancer
DM2
Essential hypertension
Hyperlipidemia
Chronic anemia
Familial hypocalciuric hypercalcemia
Tobacco dependence
Past Surgical History: Reports Gynocological and Tonsilectomy
Social History
Tobacco: Smoker
Alcohol: None
Drug: None
Living: With Family
Employment: Not Employed
Family History
Family History: Not pertinent
Allergies / Home Medications
Allergies reflects when Allergies were last updated in [facility].
Home Medications with original date entered in [facility]
Allergy/Medication List:
Allergies
Allergy/AdvReac Type Severity Reaction Status Date / Time
acetaminophen [From Percocet] Allergy Vomiting Verified 11/19/24 13:33
ciprofloxacin [From Cipro] Allergy Rash Verified 11/19/24 13:33
oxycodone [From Percocet] Allergy Vomiting Verified 11/19/24 13:33
Penicillins Allergy Rash Verified 11/19/24 13:33
Home Medications
fenofibrate nanocrystallized 145 mg tablet 145 mg PO DAILY High Cholesterol 06/18/24
lisinopril 40 mg tablet 40 mg PO DAILY Blood Pressure 06/18/24
Keytruda 1 dose IV Q6W Cancer 07/22/24
loratadine 10 mg tablet (Claritin) 10 mg PO DAILY 09/15/24
dexamethasone 4 mg tablet 8 mg PO DAILY Anti-Inflammatory 11/23/24
potassium, sodium phosphates 280 mg-160 mg-250 mg oral powder packet (Phos-NaK) 1 packet PO [facility] #20 ea 11/25/24
acetaminophen 500 mg tablet 500 mg PO Q6HPRN PRN mild pain 11/26/24
aspirin 81 mg tablet,delayed release 81 mg PO DAILY 11/26/24
guar gum 1 tbsp PO DAILY 11/26/24
hydrochlorothiazide 25 mg tablet 25 mg PO DAILY 11/26/24
loperamide 2 mg tablet 4 mg PO DAILYPRN PRN diarrhea 11/26/24
omeprazole 20 mg tablet,delayed release 20 mg PO BID 11/26/24
therapeutic multivitamin 1 tab PO DAILY 11/26/24
Review of Systems
-
History Source: Patient
A 12 point ROS was completed and negative except as noted: Yes
Physical Exam
Vital Signs
Vital Signs
Temp Pulse Resp BP Pulse Ox
98.7 F 73 10 144/71 98
11/26/24 13:04 11/26/24 16:31 11/26/24 16:31 11/26/24 16:31 11/26/24 13:04
Physical Exam
General: No Apparent Distress, Comfortable and Appears Chronically Ill
HEENT: NormoCephalic, Anicteric and Moist mucous membranes
Respiratory: Clear
Cardiac: S1/S2 and Regular Rhythm
Breast: Deferred by me
GI: Soft, Non Tender and Non Distended
Musculoskeletal: No Clubbing, No Cyanosis and No Edema
Skin: Warm and Dry
Neuro: AO x 3
Hematologic/Lymphatic: No Lymphadenopathy
Psych: Calm
Laboratory Results
-
11/26/24 13:38
11/26/24 13:38
Laboratory Results
Total Bilirubin 0.6 mg/dl (0.2-1.3) 02/20/25 13:38
AST 18 U/L (14-36) 11/26/24 13:38
ALT 16 U/L (0-35) 11/26/24 13:38
Alkaline Phosphatase 96 U/L (38-126) 11/26/24 13:38
Impression/Plan
-
Generalized weakness/ambulatory dysfunction -will admit and consult PT/OT. Admit to MedSurg.
Check phosphate and magnesium levels. CPK was normal. Recent TSH was normal. No obvious signs or symptoms of infection. Leukocytosis looks chronic. She is on steroids.
DM2 with hyperglycemia -suspect steroid-induced hyperglycemia contributing. Hemoglobin A1c 7.5%. Not on diabetes medications at home. Use low resistance NovoLog scale for now. Diabetic diet.
Chronic normocytic anemia -hemoglobin at baseline.
Esophageal cancer -on Keytruda and steroids. Known to Dr. Mas.
Essential hypertension -continue lisinopril. Hold HCTZ for hyponatremia.
Chronic hyponatremia -hold hydrochlorothiazide.
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 Calcium levels now normal, corrected calcium 9.3 for albumin 2.5.
Dexamethasone was started recently by her oncologist (Dr. Mas) for possible autoimmune etiology of hypercalcemia and to help boost her energy.
Tobacco dependence -nicotine patch ordered.
DNR
Updated son on the phone.
[2024-11-26 17:16] LABS: Magnesium 1.8 mg/dl (1.6-2.3); Phosphorus 1.7 mg/dl (2.5-4.5)
--- NOTE | 2024-11-26 17:57 | PTCARENOTE ---
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 No loose stools in the ed.
[2024-11-26] MEDS: SODIUM PHOSPHATE 255 MEQ IV (18:05)
--- NOTE | 2024-11-26 18:34 | PTCARENOTE ---
pt presents from ED via stretcher. pt is AAO*3, Vss, room air. pt denies any pain at this time. pt is oriented to the room. call reyna within the reach. plan of care ongoing
[2024-11-26] MEDS: ZOFRAN 4 MG IV (19:48)
[2024-11-26] MEDS: LOVENOX 30 MG SC (19:50)
[2024-11-26] MEDS: NEUTRA-PHOS POWDER PACKET 250 MG PO ×2 (19:51→22:34)
[2024-11-26 21:20] LABS: Glucose - Point of Care 257 mg/dl (70-99)
[2024-11-27] MEDS: ZOFRAN 4 MG IV ×4 (03:06→23:18)
[2024-11-27 06:10] LABS: Blood Urea Nitrogen 15 mg/dl (7-17); Calcium 7.5 mg/dl (8.4-10.2); Carbon Dioxide 25 mmol/L (22-30); Chloride 106 mmol/L (98-107); Estimated Creatinine Clearance 67 ml/min; Glucose 85 mg/dl (70-99); Potassium 3.5 mmol/L (3.5-5.1); Sodium 133 mmol/L (135-145); eGFR > 60.00
[2024-11-27 06:57] LABS: Hepatitis C Antibody Negative (Negative)
[2024-11-27 07:40] VITALS: BP 146/64
--- NOTE | 2024-11-27 07:59 | VNURNOTE ---
Late entry:
VN liaison rec'ed info that patient was sent back to ER per her request.
Patient was a non-admit to [facility]. RN ARRIVED TO PATIENT'S HOME AND AFTER ASSESSMENT AND PER PATIENT'S REQUEST RN CALLED 911 TO GO BACK TO HOSPITAL WITH THE PLAN OF BEING TRANSFERRED TO REHAB. PATIENT REPORTED SEVERE WEAKNESS TO THE POINT THAT SHE
COULDN'T GET OUT OF THE TOILET AND HAD TO CALL HER SON TO HELP HER UP. SHE CONTINUES WITH EPISODES OF DIARRHEA AND HER SACRUM CONTINUES TO FEEL IRRITATED AND SHE IS UNABLE TO TAKE CARE OF HERSELF. PATIENT SENT BACK TO ED.
[facility] ED notified and requested to speak to patient's son, he wanted more info on [facility] and SNFs.
[2024-11-27 08:09] LABS: Glucose - Point of Care 85 mg/dl (70-99)
--- NOTE | 2024-11-27 08:45 | WOUNDNOTE ---
[facility] RN note: Patient admitted with weakness, ambulation dysfunction. Patient admitted from home after recent discharge from . Plan is SNF rehab when discharged.
See H&P for complete history.
PMH: gastroenteritis, esophageal cancer on Keytruda, DM, HTN, smoker, DM.
Wound Location and type/assessment: Patient admitted with: multiple stage 2 sacral/coccyx pressure injuries pink with yellow fibrin which appear improved from previous admission photos. L ischial stage 2 pressure injury, pink with white fibrin.
Heels blanchable red. Jemma skin mild MASD.
Appetite: she reports a good appetite. Patient very thin. She spit up mucous during visit she reports she's been doing this for a year.
Pressure redistribution devices in place: Advanta with Accumax mattress. Patient can turn self in bed. Air chair cushion.
Plan: Sacral dressing changed. Silicone border foam maintained on L ischium. PT Vira and OT Michelle with patient at end of visit. Heels off bed with air chair cushion. Instructed patient pressure injury prevention measures. Protective foam
dressing applied to heels.
Will confirm orders with hospitalist and updated RN Axel who plans to apply a static air overlay mattress.
Care plan to be updated and will follow as needed.
Note to case management of equipment requested for discharge: air mattress.
Recommend follow up at wound care center upon discharge.
[2024-11-27 08:52] VITALS: BP 145/65; PULSE 73; O2SAT 98
[2024-11-27 08:53] VITALS: BP 145/65; PULSE 79; O2SAT 97
[2024-11-27] MEDS: NOVOLOG FLEXPEN-LOW RESISTANCE SC ×3 (09:13→17:17)
[2024-11-27] MEDS: CLARITIN 10 MG PO (10:06)
[2024-11-27] MEDS: NEUTRA-PHOS POWDER PACKET 250 MG PO ×2 (10:06→13:48)
[2024-11-27] MEDS: TRICOR 48 MG PO (10:06)
[2024-11-27] MEDS: PROTONIX 40 MG PO (10:06)
[2024-11-27] MEDS: ZESTRIL 40 MG PO (10:07)
[2024-11-27] MEDS: NICODERM TRANSDERMAL 14 MG TRANSDERM (10:07)
[2024-11-27] MEDS: DECADRON 8 MG PO (10:07)
[2024-11-27] MEDS: ASPIR LOW (ENTERIC COATED) 81 MG PO (10:08)
[2024-11-27] MEDS: THERAGRAN 1 TABLET PO (10:08)
[2024-11-27 12:05] LABS: Glucose - Point of Care 113 mg/dl (70-99)
[2024-11-27 12:18] VITALS: BMI 20.4
--- NOTE | 2024-11-27 12:25 | W.PN.HOSP.TC ---
Today's Communication/Plan
-
Oral potassium chloride
IV sodium phosphate
Continue antiemetics
PT/OT
Assessment / Plan
Assessment / Plan
Gen-AAOx3, NAD
HEENT-NC, AT, anicteric, clear oral mm
Neck-supple
CV-reg, no M, +S1/S2
Lungs-clear B/L
Abd-soft, NT, ND
Ext-no edema
Musculoskeletal-no cyanosis, clubbing
Skin-warm and dry
Neuro-grossly non-focal
Psych-calm, cooperative
Generalized weakness/ambulatory dysfunction - suspect multifactorial etiology, including deconditioning, malignancy, malnutrition, etc.
Persistent hypophosphatemia -likely due to malnutrition, poor oral intake, recurrent vomiting. Continue Neutra-Phos, give another dose of IV sodium phosphate.
Protein/calorie malnutrition -unknown severity. Suspect related to underlying malignancy and recurrent vomiting.
Unclear etiology for persistent vomiting but could be related to her known malignancy. EGD done in April 2024 showed partially obstructing malignant esophageal tumor in the middle third of the esophagus and in the lower third of the esophagus.
DM2 with hyperglycemia -suspect steroid-induced hyperglycemia contributing. Hemoglobin A1c 7.5%. Not on diabetes medications at home. Use low resistance NovoLog scale for now. Diabetic diet. Glucose 85 this morning.
Chronic normocytic anemia -hemoglobin at baseline.
Esophageal cancer -on Keytruda and steroids. Known to Dr. Mas.
Essential hypertension -continue lisinopril. Hold HCTZ for hyponatremia.
Chronic hyponatremia -hold hydrochlorothiazide. Sodium 133 today.
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 Calcium levels now normal, corrected calcium 9.3 for albumin 2.5.
Dexamethasone was started recently by her oncologist (Dr. Mas) for possible autoimmune etiology of hypercalcemia and to help boost her energy.
Left greater trochanter avulsion fracture -diagnosed September 2024.
Tobacco dependence -nicotine patch ordered.
DNR
Dispo -stable for discharge to SNF when bed available. Case management aware.
Anticipated Discharge: Within 24 hours
Subjective/Interval History
-
Date of Service: November 27, 2024
Patient seen/examined. No complaints. Has had chronic N/V without change.
Objective Data
-
Labs:
Laboratory Results
11/27/24
05:10
Sodium 133 L
Potassium 3.5
Chloride 106
Carbon Dioxide 25
BUN 15
Creatinine 0.4 L
Glucose 85
Calcium 7.5 L
Vital Signs:
Vital Signs
Temp Pulse Resp BP Pulse Ox
98.2 F 71 20 146/64 97
11/27/24 07:40 11/27/24 10:07 11/27/24 07:40 11/27/24 10:07 11/27/24 07:40
I&O
11/26/24 11/27/24 11/28/24
06:59 06:59 06:59
Intake Total 120 / 120
Output Total 250 / 250
Balance -130 / -130
Review of Systems
-
History Source: Patient
All other systems: Reviewed and negative
[2024-11-27] MEDS: KCL ELIXIR 40 MEQ PO (13:41)
[2024-11-27] MEDS: SODIUM PHOSPHATE 255 MEQ IV (13:41)
[2024-11-27 15:30] VITALS: BP 158/69
[2024-11-27 16:23] LABS: Glucose - Point of Care 177 mg/dl (70-99)
--- NOTE | 2024-11-27 16:54 | CM ---
CM met with Cynthia and her sons at bedside. Cynthia is weak and gaunt; requesting transfer to [facility] which she is familiar with. Sons are in agreement with this plan. SUHAS spoke with Cynthia about pausing Keytruda while at [facility], as well as no smoking policy at [facility]. Cynthia is ready to stop taking the Keytruda, as she feels the side effects are worse than the cure.
Plan: [facility] anticipates a bed available over the weekend; will need auth.
[2024-11-27] MEDS: LOVENOX 30 MG SC (17:14)
[2024-11-27] MEDS: NEUTRA-PHOS POWDER PACKET PO ×2 (17:17→20:44)
[2024-11-27 22:02] LABS: Glucose - Point of Care 202 mg/dl (70-99)
[2024-11-27 23:55] VITALS: BP 170/76
[2024-11-28 01:01] VITALS: BP 119/83
[2024-11-28] MEDS: ZOFRAN 4 MG IV ×2 (05:30→21:30)
[2024-11-28 06:01] LABS: % Basophils 0.1 % (0-2); % Immature Granulocytes 0.5 % (0-0.5); % Lymphocytes 8.6 % (20.5-51.1); % Monocytes 3.3 % (1.7-9.3); % Neutrophils 87.5 % (42.2-75.2); Absolute Immature Granulocytes 0.1 10^3/uL (0-0.05); Absolute Lymphocytes 1.1 10^3/uL (1.2-3.4); Absolute Monocytes 0.4 10^3/uL (0.1-0.6); Absolute Neutrophils 11.1 10^3/uL (1.4-6.5); Hematocrit 33.6 % (37.0-47.0); Hemoglobin 11.3 g/dL (12.0-16.0); Mean Corp Hgb Conc. 33.6 g/dL (33.0-37.0); Mean Corpuscular Hgb 29.1 pg (27.0-31.0); Mean Corpuscular Volume 86.6 fL (81.0-99.0); Nucleated Red Blood Cells % 0 %; Platelet Count 456 10^3/uL (130-400); Red Blood Cell Count 3.88 10^6/uL (4.20-5.40); Red Cell Dist. Width 16.2 % (11.5-14.5); White Blood Cell Count 12.6 10^3/uL (4.8-10.8)
[2024-11-28 06:22] LABS: Blood Urea Nitrogen 12 mg/dl (7-17); Calcium 7.4 mg/dl (8.4-10.2); Carbon Dioxide 25 mmol/L (22-30); Chloride 105 mmol/L (98-107); Estimated Creatinine Clearance 67 ml/min; Glucose 125 mg/dl (70-99); Phosphorus 2.3 mg/dl (2.5-4.5); Potassium 3.9 mmol/L (3.5-5.1); Sodium 132 mmol/L (135-145); eGFR > 60.00
[2024-11-28 07:46] VITALS: BP 123/58
[2024-11-28 08:14] LABS: Glucose - Point of Care 116 mg/dl (70-99)
[2024-11-28] MEDS: NOVOLOG FLEXPEN-LOW RESISTANCE SC ×2 (08:48→11:55)
--- NOTE | 2024-11-28 08:56 | W.PN.HOSP.TC ---
Today's Communication/Plan
-
Acapella, incentive spirometer
Discharge planning
Assessment / Plan
Assessment / Plan
Gen-AAOx3, NAD
HEENT-NC, AT, anicteric, clear oral mm
Neck-supple
CV-reg, no M, +S1/S2
Lungs-mild bilateral rhonchi
Abd-soft, NT, ND
Ext-no edema
Musculoskeletal-no cyanosis, clubbing
Skin-warm and dry
Neuro-grossly non-focal
Psych-calm, cooperative
Generalized weakness/ambulatory dysfunction - suspect multifactorial etiology, including deconditioning, malignancy, malnutrition, etc.
Persistent hypophosphatemia -likely due to malnutrition, poor oral intake, recurrent vomiting. Continue Neutra-Phos, give another dose of IV sodium phosphate. Phosphate slowly improving, 2.3 today.
Protein/calorie malnutrition -unknown severity. Suspect related to underlying malignancy and recurrent vomiting.
Unclear etiology for persistent vomiting but could be related to her known malignancy. EGD done in April 2024 showed partially obstructing malignant esophageal tumor in the middle third of the esophagus and in the lower third of the esophagus.
DM2 with hyperglycemia -suspect steroid-induced hyperglycemia contributing. Hemoglobin A1c 7.5%. Not on diabetes medications at home. Use low resistance NovoLog scale for now. Diabetic diet. Glucose 125 this morning.
Chronic normocytic anemia -hemoglobin at baseline.
Esophageal cancer -on Keytruda and steroids. Known to Dr. Mas.
Essential hypertension -continue lisinopril. Hold HCTZ for hyponatremia.
Chronic hyponatremia -hold hydrochlorothiazide. Sodium stable.
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 Calcium levels now normal.
Dexamethasone was started recently by her oncologist (Dr. Mas) for possible autoimmune etiology of hypercalcemia and to help boost her energy.
Left greater trochanter avulsion fracture -diagnosed September 2024.
Tobacco dependence -nicotine patch ordered. Add Acapella, incentive spirometer given her cough and rhonchi on exam.
DNR
Dispo -stable for discharge to SNF when bed available. Case management aware.
Anticipated Discharge: Within 24 hours
Subjective/Interval History
-
Date of Service: November 28, 2024
Patient seen and examined. No complaints.
Objective Data
-
Labs:
Laboratory Results
11/28/24
05:27
WBC 12.6 H
Hgb 11.3 L
Hct 33.6 L
Plt Count 456 H
Sodium 132 L
Potassium 3.9
Chloride 105
Carbon Dioxide 25
BUN 12
Creatinine 0.3 L
Glucose 125 H
Calcium 7.4 L
Vital Signs:
Vital Signs
Temp Pulse Resp BP Pulse Ox
98.3 F 78 18 123/58 92
11/28/24 07:46 11/28/24 07:46 11/28/24 07:46 11/28/24 07:46 11/28/24 07:46
I&O
11/27/24 11/28/24 11/29/24
06:59 06:59 06:59
Intake Total 120 / 120 480 / 480
Output Total 250 / 250 700 / 700
Balance -130 / -130 -220 / -220
Review of Systems
-
History Source: Patient
All other systems: Reviewed and negative
[2024-11-28] MEDS: TRICOR PO ×2 (09:04→09:09)
[2024-11-28] MEDS: PROTONIX 40 MG PO (09:04)
[2024-11-28] MEDS: DECADRON PO ×2 (09:04→09:08)
[2024-11-28] MEDS: CLARITIN PO ×2 (09:04→09:09)
[2024-11-28] MEDS: ZESTRIL PO ×2 (09:04→09:09)
[2024-11-28] MEDS: THERAGRAN PO ×2 (09:04→09:09)
[2024-11-28] MEDS: ASPIR LOW (ENTERIC COATED) PO ×2 (09:05→09:08)
[2024-11-28] MEDS: NEUTRA-PHOS POWDER PACKET PO ×4 (09:06→21:28)
[2024-11-28] MEDS: SODIUM PHOSPHATE 255 MEQ IV (09:17)
--- NOTE | 2024-11-28 09:48 | PTCARENOTE ---
Pt refusing all PO morning meds except Protonix. Pt says she wants to talk to her PCP before taking any meds. Dr Chinchilla made aware.
[2024-11-28] MEDS: COMPAZINE 10 MG IV ×2 (10:28→17:39)
[2024-11-28 11:48] LABS: Glucose - Point of Care 145 mg/dl (70-99)
[2024-11-28] MEDS: NICODERM TRANSDERMAL 14 MG TRANSDERM (12:27)
[2024-11-28] MEDS: NEUTRA-PHOS POWDER PACKET 250 MG PO (12:28)
[2024-11-28] MEDS: IMODIUM 4 MG PO (13:23)
--- NOTE | 2024-11-28 15:36 | CM ---
Patient seen at bedside.
[facility] accepted, patient agreeable
CM called Maureen liaison for bed availability, she will get back to CM
CM will need to obtain insurance auth
PLAN: SNF, pending bed availability, will need ins. auth
[2024-11-28 15:38] VITALS: BP 132/54
[2024-11-28 17:07] LABS: Glucose - Point of Care 197 mg/dl (70-99)
[2024-11-28] MEDS: NOVOLOG FLEXPEN-LOW RESISTANCE 1 UNITS SC (17:33)
[2024-11-28] MEDS: LOVENOX 30 MG SC (17:34)
[2024-11-28 22:23] LABS: Glucose - Point of Care 240 mg/dl (70-99)
[2024-11-28 23:44] VITALS: BP 147/63
--- NOTE | 2024-11-28 23:53 | PTCARENOTE ---
pt o2 sat at 89% on room air. pt does not complain of SOB or trouble breathing, she is resting comfortably in bed. all other VSS. FOOD SAFETY SPECIALIST made aware, placed pt on 2L nasal cannula, o2 sat now at 92% on 2L. plan of care ongoing.
[2024-11-29 06:17] LABS: Blood Urea Nitrogen 13 mg/dl (7-17); Calcium 7.4 mg/dl (8.4-10.2); Carbon Dioxide 25 mmol/L (22-30); Chloride 104 mmol/L (98-107); Estimated Creatinine Clearance 67 ml/min; Glucose 150 mg/dl (70-99); Magnesium 1.8 mg/dl (1.6-2.3); Phosphorus 1.8 mg/dl (2.5-4.5); Potassium 3.1 mmol/L (3.5-5.1); Sodium 134 mmol/L (135-145); eGFR > 60.00
--- NOTE | 2024-11-29 07:47 | W.PN.HOSP.TC ---
Addendum entered and electronically signed by Casimiro Chinchilla DO 11/29/24 08:29:
I spoke with patient's son Sumit on the phone regarding patient's wishes for hospice.
Sumit will speak with his mother and the rest of the family and come up with a plan. He asked me to hold off on consulting hospice until family makes a decision. He is concerned about the logistics of getting her home on hospice back to her
apartment.
Original Note:
Today's Communication/Plan
-
Consult hospice
Discharge planning
Minimize medications
Assessment / Plan
Assessment / Plan
Gen-AAOx3, NAD
HEENT-NC, AT, anicteric, clear oral mm
Neck-supple
CV-reg, no M, +S1/S2
Lungs-mild bilateral rhonchi
Abd-soft, NT, ND
Ext-no edema
Musculoskeletal-no cyanosis, clubbing
Skin-warm and dry
Neuro-grossly non-focal
Psych-calm, cooperative
Generalized weakness/ambulatory dysfunction - suspect multifactorial etiology, including deconditioning, malignancy, malnutrition, etc.
Persistent hypophosphatemia -likely due to malnutrition, poor oral intake, recurrent vomiting. Patient refusing to take Neutra-Phos orally due to bad taste. I tried to explain to her that it is important to improve her phosphate level to help with
her weakness. She is willing to try it if we can mix it with juice or some other flavoring.
Hypokalemia -replete IV. Magnesium is normal.
Protein/calorie malnutrition -unknown severity. Suspect related to underlying malignancy and recurrent vomiting.
Unclear etiology for persistent vomiting but could be related to her known malignancy. EGD done in April 2024 showed partially obstructing malignant esophageal tumor in the middle third of the esophagus and in the lower third of the esophagus.
DM2 with hyperglycemia -suspect steroid-induced hyperglycemia contributing. Hemoglobin A1c 7.5%. Not on diabetes medications at home. Use low resistance NovoLog scale for now. Diabetic diet. Glucose 150 this morning.
Chronic normocytic anemia -hemoglobin at baseline.
Esophageal cancer -on Keytruda and steroids. Known to Dr. Mas. Patient wants to stop further cancer treatments and go home on hospice.
Essential hypertension -continue lisinopril. Hold HCTZ for hyponatremia.
Chronic hyponatremia -hold hydrochlorothiazide. Sodium improving.
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 Calcium levels now normal.
Dexamethasone was started recently by her oncologist (Dr. Mas) for possible autoimmune etiology of hypercalcemia and to help boost her energy.
Left greater trochanter avulsion fracture -diagnosed September 2024.
Tobacco dependence -nicotine patch ordered. Add Acapella, incentive spirometer given her cough and rhonchi on exam.
DNR
Dispo -I had a octavio discussion with patient today regarding goals of care as she is refusing most of her medications. We discussed focusing on quality of life and comfort and she is agreeable to home hospice.
She wants to stop Keytruda and cancer treatments moving forward.
She no longer wants to go to rehab. I will discuss further with her family and I will send a [place] text to the on-call oncologist.
Patient plans on informing her primary oncologist Dr. Mas on Saturday.
Anticipated Discharge: Within 24 hours
Subjective/Interval History
-
Date of Service: November 29, 2024
Patient seen and examined. Complaining of nausea off and on.
Objective Data
-
Labs:
Laboratory Results
11/29/24
05:25
Sodium 134 L
Potassium 3.1 L
Chloride 104
Carbon Dioxide 25
BUN 13
Creatinine 0.4 L
Glucose 150 H
Calcium 7.4 L
Vital Signs:
Vital Signs
Temp Pulse Resp BP Pulse Ox
97.9 F 89 20 147/63 92
11/28/24 23:44 11/28/24 23:44 11/28/24 23:44 11/28/24 23:44 11/28/24 23:53
I&O
11/28/24 11/29/24 11/30/24
06:59 06:59 06:59
Intake Total 480 / 480 920 / 920
Output Total 700 / 700 600 / 600
Balance -220 / -220 320 / 320
Review of Systems
-
History Source: Patient
All other systems: Reviewed and negative
[2024-11-29 07:52] LABS: Glucose - Point of Care 152 mg/dl (70-99)
[2024-11-29] MEDS: SODIUM PHOSPHATE 255 MEQ IV (07:52)
[2024-11-29] MEDS: PROTONIX 40 MG PO (07:52)
[2024-11-29] MEDS: NICODERM TRANSDERMAL 14 MG TRANSDERM (07:53)
[2024-11-29] MEDS: ZESTRIL PO (07:59)
[2024-11-29] MEDS: CLARITIN PO (07:59)
[2024-11-29 08:00] VITALS: BP 155/84
[2024-11-29] MEDS: NOVOLOG FLEXPEN-LOW RESISTANCE 1 UNITS SC ×2 (08:00→17:05)
[2024-11-29] MEDS: NEUTRA-PHOS POWDER PACKET 250 MG PO ×4 (09:39→21:46)
[2024-11-29] MEDS: KCL 270 MEQ IV (11:38)
[2024-11-29 12:17] LABS: Glucose - Point of Care 202 mg/dl (70-99)
[2024-11-29] MEDS: NOVOLOG FLEXPEN-LOW RESISTANCE 2 UNITS SC (12:55)
[2024-11-29] MEDS: COMPAZINE 10 MG IV (13:13)
--- NOTE | 2024-11-29 15:45 | CM ---
Patient seen at bedside along with son Dominick, sister Shama & son Sumit on phone.
Patient & family decided SNF vs. hospice.
PT/OT to eval patient today
CM will need to obtain insurance authorization for SNF
Spoke with Maureen at [facility] and updated. CM to call Maureen in the morning after obtaining ins auth.
MIKE GONZALEZ
NPI #: [id number]
Dr. Zeeshan Funk NPI #:[id number]
PLAN: [facility], will need to obtain insurance auth tomorrow morning.
[2024-11-29 15:52] VITALS: BP 154/74
[2024-11-29 16:36] VITALS: BP 147/67; BP 157/71; PULSE 91; O2SAT 92
[2024-11-29 16:52] LABS: Glucose - Point of Care 183 mg/dl (70-99)
[2024-11-29 21:08] LABS: Glucose - Point of Care 185 mg/dl (70-99)
[2024-11-29 23:13] VITALS: BP 164/73
[2024-11-30] MEDS: ZOFRAN 4 MG IV (04:05)
[2024-11-30 05:17] LABS: Blood Urea Nitrogen 8 mg/dl (7-17); Calcium 7.4 mg/dl (8.4-10.2); Carbon Dioxide 25 mmol/L (22-30); Chloride 105 mmol/L (98-107); Estimated Creatinine Clearance 67 ml/min; Glucose 157 mg/dl (70-99); Magnesium 1.6 mg/dl (1.6-2.3); Phosphorus 1.6 mg/dl (2.5-4.5); Potassium 3.6 mmol/L (3.5-5.1); Sodium 132 mmol/L (135-145); eGFR > 60.00
[2024-11-30 07:30] LABS: Glucose - Point of Care 152 mg/dl (70-99)
[2024-11-30 07:35] VITALS: BP 174/74
[2024-11-30] MEDS: NOVOLOG FLEXPEN-LOW RESISTANCE 1 UNITS SC (08:52)
[2024-11-30] MEDS: PROTONIX 40 MG PO (08:53)
[2024-11-30] MEDS: ZESTRIL 40 MG PO (08:53)
[2024-11-30] MEDS: CLARITIN 10 MG PO (08:54)
[2024-11-30] MEDS: NICODERM TRANSDERMAL 14 MG TRANSDERM (08:54)
[2024-11-30 09:28] VITALS: BP 168/82; PULSE 89; O2SAT 94
--- NOTE | 2024-11-30 09:48 | W.PN.HOSP.TC ---
Addendum entered and electronically signed by Samuel Carnes MD 12/03/24 17:36:
Severe protein calorie malnutrition
Original Note:
Today's Communication/Plan
-
Assessment / Plan
Assessment / Plan
Gen-AAOx3, NAD, thin, cachetic, temporal wasting, muscle atrophy
HEENT-NC, AT, anicteric, clear oral mm
Neck-supple
CV-reg, no M, +S1/S2
Lungs-mild bilateral rhonchi
Abd-soft, NT, ND
Ext-no edema
Musculoskeletal-no cyanosis, clubbing
Skin-warm and dry
Neuro-grossly non-focal
Psych-calm, cooperative
Generalized weakness/amatory dysfunction
-Likely multifactorial in the setting of deconditioning malignancy and malnutrition/hypophosphatemia
-Discussed improving p.o. intake. Tells me she drinks 3-4 ensures daily. Unable to keep solids down.
-- Speech eval
-- Continue Ensure
-- Understands that she needs to have good p.o. intake in order to be strong enough to function and if she does not then unfortunately we would be going towards Hospice
Hyperphosphatemia
-Refusing neutraphos due to taste
Hypokalemia
-Replete prn
Protein/calorie malnutrition -unknown severity. Suspect related to underlying malignancy and recurrent vomiting.
Unclear etiology for persistent vomiting but could be related to her known malignancy. EGD done in April 2024 showed partially obstructing malignant esophageal tumor in the middle third of the esophagus and in the lower third of the esophagus.
- Speech therapy eval
- Continue Ensure
DM2 with hyperglycemia -suspect steroid-induced hyperglycemia contributing. Hemoglobin A1c 7.5%. Not on diabetes medications at home. Use low resistance NovoLog scale for now. Diabetic diet. Glucose 150 this morning.
Chronic normocytic anemia -hemoglobin at baseline.
Esophageal cancer -on Keytruda and steroids. Known to Dr. Mas. Patient wants to stop further cancer treatments
Essential hypertension -continue lisinopril. Hold HCTZ for hyponatremia.
Chronic hyponatremia -hold hydrochlorothiazide. Sodium improving.
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 Calcium levels now normal.
Dexamethasone was started recently by her oncologist (Dr. Mas) for possible autoimmune etiology of hypercalcemia and to help boost her energy.
Left greater trochanter avulsion fracture -diagnosed September 2024.
Tobacco dependence -nicotine patch ordered. Add Acapella, incentive spirometer given her cough and rhonchi on exam.
DN
Anticipated Discharge: Within 24 hours
Subjective/Interval History
-
Date of Service: November 30, 2024
seen and examined
no new complaints
sitting in bedside chair brushing her teeth
tells me that she vomits after eating, early/fast satiety/fullness
appeitite is good otherwise
no a swallowing issure
Objective Data
-
Labs:
Laboratory Results
11/30/24
04:49
Sodium 132 L
Potassium 3.6
Chloride 105
Carbon Dioxide 25
BUN 8
Creatinine 0.3 L
Glucose 157 H
Calcium 7.4 L
Vital Signs:
Vital Signs
Temp Pulse Resp BP Pulse Ox
97.8 F 84 18 174/74 92
11/30/24 07:35 11/30/24 08:53 11/30/24 07:35 11/30/24 08:53 11/30/24 07:35
I&O
11/29/24 11/30/24 12/01/24
06:59 06:59 06:59
Intake Total 920 / 920 480 / 480
Output Total 600 / 600 900 / 900
Balance 320 / 320 -420 / -420
[2024-11-30] MEDS: NEUTRA-PHOS POWDER PACKET 250 MG PO ×2 (11:27→14:27)
[2024-11-30 11:47] LABS: Glucose - Point of Care 169 mg/dl (70-99)
--- NOTE | 2024-11-30 13:41 | CM ---
Addendum entered by Tg Self 11/30/24 14:22:
Ambulance transport confirmed for 4pm today. Pt and sister aware; pt's sister has notified Cynthia's sons of discharge time to [facility]. IMM reviewed; pt gave verbal consent. Copy provided to her sister.
Original Note:
Pt is cleared for discharge to [facility] today. Authorization obtained after multiple hours on hold.
SNF authorization provided by Tequila at [facility]. Authorization #[id number] for DOS 11/30-12/07/2024.
[facility] has a bed available for transfer. Ambulance transport requested for 4PM.
Plan: Transfer to [facility] today via ambulance.
Mike Louis Report: [phone]
Mike Louis
--- NOTE | 2024-11-30 13:42 | PTOTSP ---
SPEECH THERAPY SWALLOW EVALUATION:
Grossly functional oropharyngeal swallow at this time in patient with known esophageal dysphagia 2/2 esophageal cancer. Patient previously had Outpatient Videofluoroscopic Swallowing Study 04/06/2024 at which indicated similar results. Recommending
continue current diet (Regular texture solids, thin liquids). Avoid hard/dry textures, select soft/moist items. Meds whole with liquid. Patient remains at risk for post-prandial aspiration given esophageal dysphagia and report of frequent vomiting
after p.o. intake. Aspiration and Reflux precautions: Upright positioning during p.o. intake; Remain upright 30-60 minutes after eating/drinking; Intersperse liquids and alternate textures; Small, frequent meals; Thorough mastication. Consider GI
consult should patient need additional follow-up given esophageal dysphagia 2/2 esophageal cancer if consistent with Goals of Care. ST to follow briefly for education, assess diet tolerance and modify as appropriate, and determine indication for
repeat instrumental assessment of swallowing as appropriate.
RECOMMEND:
1) Regular texture solids, thin liquids). Avoid hard/dry textures, select soft/moist items
2) Meds whole with liquid
3) Aspiration and Reflux precautions: Upright positioning during p.o. intake; Remain upright 30-60 minutes after eating/drinking; Intersperse liquids and alternate textures; Small, frequent meals; Thorough mastication
4) Consider GI consult should patient need additional follow-up given esophageal dysphagia 2/2 esophageal cancer if consistent with Goals of Care
5) ST to follow briefly for education, assess diet tolerance and modify as appropriate, and determine indication for repeat instrumental assessment of swallowing as appropriate
6) Oral care 3x/day
[2024-11-30] MEDS: NOVOLOG FLEXPEN-LOW RESISTANCE SC (14:15)
--- NOTE | 2024-11-30 14:20 | W.DCSUMMARY ---
Discharge Summary
Discharge Data
Date of Admission: 11/26/24
Date of Discharge: 11/30/24
-
Pending Results: No
Hospital Course
74 female history of esophageal cancer DM2 hypertension hyperlipidemia familial hypocalciuric hypercalcemia, tobacco dependence
Presented with ongoing weakness and inability care for self. Requesting placement. Found to have severe hypophosphatemia attempted repletion however declined as he did not like the taste of the pills. Has a known history of esophageal cancer was
evaluated by speech therapy recommended regular texture with thin liquids. However, this causes vomiting and uncomfortableness with fullness. Tolerates Ensure well therefore encouraged 3-4 ensures daily. Have nutrition evaluate at [facility].
Repeat BMP in 3 days if eating well to follow phosphorus level.
No longer interested in chemotherapy or Keytruda treatment
Wound Care Instructions
Sacral/coccyx and L ischial ulcers-clean with saline or soap and water, silicone border foam, change q 2 days and prn loosened dressing.
air mattress
Turning schedule
Elevate heels off bed with pillow
Pressure redistributing chair cushion (i.e. Air chair cushion).
Follow up with wound plant care worker or at wound care center call for an appointment.
Discharge Plan
-
Patient Disposition: Shelter/SNF
Discharge Diagnosis/Procedures: Generalized weakness
Condition: Fair
Diet: As tolerated
Additional Diets: Ensure 4 times a day
Nutrition to see at [facility]
Activity: With assistance and As tolerated
Driving Restrictions: No driving
Activity Restrictions/Additional Instructions:
Presented with ongoing weakness and inability care for self. Requesting placement. Found to have severe hypophosphatemia attempted repletion however declined as he did not like the taste of the pills. Has a known history of esophageal cancer was
evaluated by speech therapy recommended regular texture with thin liquids. However, this causes vomiting and uncomfortableness with fullness. Tolerates Ensure well therefore encouraged 3-4 ensures daily. Have nutrition evaluate at [facility].
Repeat BMP in 3 days if eating well to follow phosphorus level.
No longer interested in chemotherapy or Keytruda treatment
Wound Care Instructions
Sacral/coccyx and L ischial ulcers-clean with saline or soap and water, silicone border foam, change q 2 days and prn loosened dressing.
air mattress
Turning schedule
Elevate heels off bed with pillow
Pressure redistributing chair cushion (i.e. Air chair cushion).
Follow up with wound plant care worker or at wound care center call for an appointment.
Referrals:
Kathleen Manzano DO [Family Provider] -
Prescriptions:
New
nicotine 14 mg/24 hr Patch 24 Hour
14 mg transdermal DAILY Qty: 14 0RF
pantoprazole 40 mg Tablet,Delayed Release (Dr/Ec)
40 mg PO DAILY Qty: 30 0RF
Continued
lisinopril 40 mg Tablet
40 mg PO DAILY
fenofibrate nanocrystallized 145 mg Tablet
145 mg PO DAILY
loratadine [Claritin] 10 mg Tablet
10 mg PO DAILY
dexamethasone 4 mg Tablet
8 mg PO DAILY
potassium, sodium phosphates [Phos-NaK] 280-160-250 mg powder in packet
1 packet PO PCHS Qty: 20 0RF
loperamide 2 mg Tablet
4 mg PO DAILYPRN PRN (Reason: diarrhea)
therapeutic multivitamin Tablet
1 tab PO DAILY
aspirin 81 mg Tablet,Delayed Release (Dr/Ec)
81 mg PO DAILY
acetaminophen 500 mg Tablet
500 mg PO Q6HPRN PRN (Reason: mild pain)
guar gum Packet
1 tbsp PO DAILY
hydrochlorothiazide 25 mg Tablet
25 mg PO DAILY
omeprazole 20 mg Tablet,Delayed Release (Dr/Ec)
20 mg PO BID
Discontinued
Keytruda
1 dose IV Q6W
Rx Instructions:
on saturday
Discharge Orders:
Discharge Patient (As Directed); Ordered 11/30/24
Ordered By: Samuel Carnes
Discharge Date and Time
Print Language: LAO
[2024-11-30 15:18] VITALS: BP 156/76
--- NOTE | 2024-11-30 16:40 | PTCARENOTE ---
Report was given to charge nurse at [facility].
--- NOTE | 2024-12-01 12:21 | PN.CDI ---
CDI
- -
CDI:
Physician Documentation Request
Admit Date: 11/26/24 16:50
Dear Doctor Deyvi,
Patient admitted with generalized weakness.
11/30 PN, 'Protein/calorie malnutrition -unknown severity.'
11/27 Nutrition note, ' Compared to UBW of 179 lbs in June pt with a 66 lb (37%) weight loss in 5 months, significant.
During visit RD able to visualize, protrusion of clavicle, temporal wasting, orbital area sunken in and apparent ribs.
With NFPE, <75% estimated needs > 1 month and weight loss of > 10% in 6 months pt meets AND/ASPEN criteria for severe protein calorie malnutrition of chronic illness.
Based on the above and your assessment, please provide in your note the severity of malnutrition:
Severe protein calorie malnutrition
Moderate protein calorie malnutrition
Other
[place] Criteria ([facility] Hospitalist 2017)
2 or more criteria must be present for either
non severe or severe malnutrition
Note that the criteria differs related to the
presence of an acute or chronic illness
Chronic Illness
Energy Intake Non Severe: <75% for >1 month
Severe: <75% for >1 month
Weight Loss Non Severe: 5% over 1 month
7.5% over 3 months
10% over 6 months
20% over 1 year
Severe: >5% over 1 month
>7.5% over 3 months
>10% over 6 months
>20% over 1 year
Body Fat Non Severe: Mild Loss
Severe: Severe Loss
Muscle Mass Non Severe: Mild Loss
Severe: Severe Loss
Fluid Accumulation Non Severe: Mild Accumulation
Severe: Moderate to severe
accumulation
Reduced Policy Officer Strength Non Severe: N/A
Severe: Measurably reduced
Use of terms such as suspected, likely, concern for, or probable (associated with a specific diagnosis that is being evaluated, monitored, or treated as if it exists) are acceptable and can be coded in the inpatient setting, when documented at the
time of discharge.
Thank you,
June WEINSTEIN,RN,CCDS
CDI Specialist
Available via [place] text
Please use your independent medical judgment in providing your response.
== END 2024-11-30 16:50 | DRG 642 ==
LOC: 4 EAST ACU 16:50
PROVIDERS: Emergency Medicine; ADMITTING PHYSICIAN Hospitalist; ATTENDING PHYSICIAN Hospitalist; EMERGENCY PHYSICIAN Student in an Organized Health Care Education/Training Program; FAMILY PHYSICIAN Family Medicine
DX: E83.39 Other disorders of phosphorus metabolism (principal); E43 Unspecified severe protein-calorie malnutrition; E87.1 Hypo-osmolality and hyponatremia; C15.9 Malignant neoplasm of esophagus, unspecified; R64 Cachexia; E46 Unspecified protein-calorie malnutrition; Z66 Do not resuscitate; F17.200 Nicotine dependence, unspecified, uncomplicated; I10 Essential (primary) hypertension; D64.9 Anemia, unspecified; E11.65 Type 2 diabetes mellitus with hyperglycemia; Z68.20 Body mass index [BMI] 20.0-20.9, adult; E87.6 Hypokalemia; E83.52 Hypercalcemia; Z79.4 Long term (current) use of insulin; Z92.21 Personal history of antineoplastic chemotherapy
CPT/HCPCS: 80048; 80053; 82550; 82962; 83735; 84100; 85025; 86803; 92610; 96360; 97129; 97163; 97167; 97530; 97535; 99285